=== PATIENT | female | born 1985 | race Hispanic/Latino ===

== ENCOUNTER → 2021-03-16 | Day surgery (SDC) | payer BC ==
--- NOTE | 2021-03-16 12:23 | RAD REPORT ---
EXAM DESCRIPTION: US - Breast Core BX w/US Guidance - 03/16/2021 10:55 am CLINICAL HISTORY: ICD R 92.8 COMPARISON: 03/07/2021 TECHNIQUE: The risks, benefits alternatives to the procedure were explained to the patient and infor med consent obtained. Skin and subcutaneous tissues anesthetized with lidocaine. Under sonographic guidance, 4 x 12 gauge core biopsies of the mass within the left breast obtained. 2 centimeter specimens taken. Tissue given to pathology. Subsequently a localizing clip was placed into the mass. Patient experienced no immediate complication IMPRESSION: Technically successful ultrasound-guided core biopsy of a left breast lesion.
== END ==
LOC: DS 10:16
PROVIDERS: ATTEND Specialist
DX: C50.012 Malignant neoplasm of nipple and areola, left female breast (principal); Z17.0 Estrogen receptor positive status [ER+]
CPT/HCPCS: 19083; 88305

== ENCOUNTER 2021-03-25 17:26 | Emergency (ER) | payer BC ==
--- OUTSIDE RECORDS SUMMARY | 2021-03-25 17:29 | XMS REPORT | Continuity of Care Document ---
:1985 Author Organization [facility] t Address [address] [place] [address] Care Team Providers Name Role Phone Talita VICK, Renny Primary Care Physician Cyrus VICK, Monica Cates Attending Clinician [phone] Provider MD Attending Clinician Provider, Urgent Care Attending Clinician Unavailable Doctor Unassigned, Name Attending Clinician Unavailable Payers Payer Name Policy Type Policy Effective Date Expiration Date Sour ce Number BCBSBCBS CHOICE [id number] 2020 [facility] PPO/FEDERAL 00:00:00 Hospital EMPL [id number] 2020-Presen tPPO Problems Condition Condition Condition Status Onset Resolution Last Treating Co mments Source Name Details Category Date Date Treatment Clinician Date Malignant Malignant Disease Active Met [facility] neoplasm neoplasm 03-24 of [facility] 00:00: [facility] portion of portion of 00 l left left breast in breast in female, female, estrogen estrogen receptor receptor positive positive Family Family Disease Active [facility] history of history of 03-24 breast breast 00:00: Hospita cancer cancer 00 l Allergies, Adverse Reactions, Alerts This patient has no known allergies or adverse reactions. Family History Family Member Diagnosis Comments Start Date Stop Date Source Maternal aunt Thyroid cancer [facility] Maternal grandmother Breast cancer [facility] Natural sister Colon polyps [facility] Social History Social Habit Start Date Stop Date Quantity Comments Source Exposure to Not sure [facility] [address] (event) Tobacco use and 2021-03-24 2021-03-24 Never used [facility] exposure [facility]00 [facility] Alcohol intake 2021-03-24 2021-03-24 Ex-drinker [facility] 00:[facility]:00 [facility]:00 (finding) Hospital Sex Assigned At [birth year] [facility] 00:00:00 00:00:00 [facility] Smoking Status Start Date Stop Date Source [facility] smoker [facility] Medications Ordered Filled Start Stop Current Ordering Indication Dosage Frequency Signature Comments Components Source Medication Medication Date Date Medication? Clinician (SIG) Name Name loratadine Yes 10mg QD Take 10 mg M [facility] (CLARITIN) 8-[address] 10 mg 21:28: daily. Hospita tablet 22 l melatonin Yes Take by Metho di 10 mg 8-[address] capsule 21:28: Hospita 22 l Mirena 20 Yes TO BE [facility] mcg/24 6-[address] hours (6 00:00: ONE TIME Hospi ta yrs) 52 mg 00 BY l IUD INTRAUTERI NE ROUTE BY PRESCRIBER Vital Signs Vital Name Observation Time Observation Value Comments Source Systolic blood 2021-03-24 21:26:00 131 mm[Hg] [facility] pressure Diastolic blood 2021-03-24 21:26:00 94 mm[Hg] [facility] pressure Heart rate 2021-03-24 21:26:00 97 /min [facility] Body height 2021-03-24 21:26:00 152.4 cm [facility] Body weight 2021-03-24 21:26:00 71.215 kg [facility] BMI 2021-03-24 21:26:00 30.66 kg/m2 [facility] Procedures Procedure Date / Time Performing Clinician Source Performed SURGICAL PATHOLOGY 2021-03-24 00:00:00 Provider, Historical [facility] REQUEST US BREAST BIOPSY LEFT 2021-03-16 00:00:00 Provider, Historical [facility] SURGICAL PATHOLOGY 2021-03-16 00:00:00 Provider, Historical [facility] REQUEST MAMMO BREAST DIAGNOSTIC 2021-03-07 00:00:00 Provider, Historical [facility] TOMOSYNTHESIS LEFT US AXILLA LEFT 2021-03-07 00:00:00 Provider, Historical [facility] MAMMO BREAST SCREEN 2021-02-03 00:00:00 Provider, Historical [facility] TOMOSYNTHESIS BILATERAL Plan of Care Planned Activity Planned Date Details Comments Source Future Scheduled Test COVID-19 VACCINE (1) [facility] [code = COVID-19 VACCINE (1)] Future Scheduled Test Hepatitis C screening [facility] (procedure) [code = 698574746] Future Scheduled Test Screening for [facility] malignant neoplasm of cervix (procedure) [code = 839427128] Future Scheduled Test INFLUENZA VACCINE [facility] [code = INFLUENZA VACCINE] Encounters Start End Encounter Admission Attending Care Care Encounter Source Date/Time Date/Time Type Type Clinicians Facility Department ID 2021-03-24 2021-03-24 Office Cyrus, 1.2.840.1 [id number] [facility] 15:52:37 16:52:37 Visit Monica Cates [id number] 3.430.2.7 Hospit a .[id number] l .8 2021-03-24 2021-03-24 [id number] [place] 00:00:00 00:00:00 MONICA 9 [facility] 2021-03-24 2021-03-24 Orders Provider, 1.2.840.1 [id number] [facility] 00:00:00 00:00:00 Only Historical 95467.1.1 986 s t 3.430.2.7 Hospit a .3.349391 l .8 2021-03-24 2021-03-24 Travel 1.2.840.1 [id number] [facility] 00:00:00 00:00:[id number] 3.430.2.7 0.2.7.3.698 Ho spita .3.672035 084.8 l .8 2021-03-23 2021-03-23 Orders Provider, 1.2.840.1 [id number] [facility] 00:00:00 00:00:00 Only Historical 57814.1.1 590 s t 3.430.2.7 Hospit a .3.446922 l .8 2020-07-17 2020-07-17 Urgent Provider, [facility] [id number] 16:02:04 16:57:55 Care [facility] 350.1.13.10 Care [place] 4.2.7.2.686 Yolande [id number] nal 044 Office [address] 2020-07-17 2020-07-17 Letter Doctor CINDI 1.2.840.114 [id number] 00:00:00 00:00:00 (Out) Unassigned, [place] 350.1.13.10 [place] [facility] 4.2.7.2.686 [id number] 044 Results This patient has no known results.
[2021-03-25 18:51] LABS: Absolute Lymphocytes (CBC) 2.9 K/uL (0.7-4.9); Basophils % 1.1 % (0-1.3); Hematocrit 40.1 % (36.0-45.0); Lymphocytes % 38.4 % (15.3-44.8); MPV 7.3 fL (7.6-11.3); RBC Red Blood Cell Count 4.69 M/uL (3.86-4.86)
[2021-03-25 18:56] LABS: Urine Blood 2+ (Negative); Urine Glucose Negative (Negative); Urine Protein 1+ (Negative); Urine Specific Gravity >=1.030 (1.005-1.030); Urine pH 5.5 (5.0-7.0)
[2021-03-25 19:15] LABS: ALT/SGPT 27 U/L (12-78); AST/SGOT 5 U/L (15-37); Albumin 4.1 g/dL (3.4-5.0); Alkaline Phosphatase 83 U/L (45-117); BUN Blood Urea Nitrogen 13 mg/dL (7-18); Bicarbonate 27 mmol/L (21-32); Bilirubin Direct 0.1 mg/dL (0-0.2); Bilirubin Total 0.6 mg/dL (0.2-1.0); Glucose Level 91 mg/dL (74-106); Lipase 85 U/L (73-393); Protein, Total 8.4 g/dL (6.4-8.2); Sodium Level 137 mmol/L (136-145); Troponin (Emerg Dept Use Only) < 0.02 ng/mL (0.0-0.045)
[2021-03-25] MEDS ORDERED: ONDANSETRON 4 MG/2 ML VIAL ONE (19:49)
[2021-03-25] MEDS ORDERED: MORPHINE 4 MG/ML SYR ONE (19:49)
[2021-03-25 21:07] LABS: Urine Bacteria >50 /HPF (<20); Urine Mucus 2+ /HPF (NONE SEEN)
--- NOTE | 2021-03-25 21:09 | RAD REPORT ---
EXAM DESCRIPTION: CT - Chest Abdomen Pelvis W Cont - 03/25/2021 8:49 pm CLINICAL HISTORY: Breast cancer/left flank pain COMPARISON: None TECHNIQUE: Computed axial tomography of the chest, abdomen and pelvis was obtained. 100 cc Isovue-30 0 was administered intravenously. Oral contrast was given All CT scans are performed using dose optimization technique as appropriate and may include automated exposure control or mA/KV adjustment according to patient size. FINDINGS: The lungs are clear. No mediastinal, axillary or hilar lymphadenopathy A pleural effusion is not seen. A pericardial effusion is not noted. 19 millimeter left breast mass Liver, spleen, pancreas, adrenals and kidneys appear unremarkable There is no evidence of diverticulitis. 4 centimeter complex cystic mass left ovary. IUD in good position Tiny umbilical hernia IMPRESSION: 19 millimeter left breast mass has been biopsied and represents a neoplasm. 4 centimeter complex cystic mass left ovary may represent a benign ovarian complex cyst or ovarian cy stadenoma. Follow-up ultrasound in a couple months recommended for re-evaluation
[2021-03-25 21:10] LABS: Urine Specific Gravity/Preg >1.030 (1.005-1.030)
[2021-03-25] MEDS ORDERED: LORazepam 2 MG/ML VIAL ONE (23:16)
--- NOTE | 2021-03-25 23:22 | EDPHYS ---
Physician Documentation [facility] Name: Yovana Gutierrez Age: 35 yrs Sex: Female : 1985 Arrival Date: 03/25/2021 Time: 17:31 Bed 13 Private MD: ED Physician Emilio Funk HPI: 03/25 18:17 This 35 yrs old Female presents to ER via Ambulatory with complaints of jmm Abdominal Pain, Shortness Of Breath. 18:17 The patient presents with abdominal pain. Onset: The symptoms/episode began/occurred jmm gradually, 1 day(s) ago. The symptoms radiate to left back. Associated signs and symptoms: Pertinent positives: shortness of breath. The symptoms are described as achy. Modifying factors: The symptoms are alleviated by nothing, the symptoms are aggravated by nothing. 35-year-old female with a history of recently diagnosed left breast cancer that presents to ER with complaints of left flank pain with some shortness of breath the pain does radiate into her left lower abdomen. Denies vomiting, diarrhea. . Historical: - Allergies: 17:52 No Known Allergies; zb - Home Meds: 17:52 Melatonin Oral [Active]; Claritin 10 mg Oral tab 1 tab once daily [Active]; zb acetaminophen 1,000 mg oral pwpk 1 gram daily [Active]; - PMHx: 17:52 breast cancer; zb - PSHx: 17:52 None; zb - Immunization history:: Adult Immunizations up to date, Client reports receiving the 2nd dose of the Covid vaccine, Date received: August 2020. - Social history:: Smoking status: unknown. ROS: 18:17 Constitutional: Negative for fever, chills, and weight loss, Cardiovascular: Negative jmm for chest pain, palpitations, and edema. 18:17 Respiratory: Positive for shortness of breath. 18:17 All other systems are negative. Exam: 18:17 Constitutional: This is a well developed, well nourished patient who is awake, alert, jmm and in no acute distress. Head/Face: atraumatic. Eyes: EOMI, no conjunctival erythema appreciated ENT: Moist Mucus Membranes Neck: Trachea midline, Supple Chest/axilla: Normal chest wall appearance and motion. Cardiovascular: Regular rate and rhythm. No edema appreciated Respiratory: Normal respirations, no respiratory distress appreciated Abdomen/GI: Non distended, soft Back: Normal ROM Skin: General appearance color normal MS/ Extremity: Moves all extremities, no obvious deformities appreciated, no edema noted to the lower extremities Neuro: Awake and alert, normal gait Psych: Behavior is normal, Mood is normal, Patient is cooperative and pleasant Vital Signs: 17:48 BP 130 / 90; Pulse 86; Resp 18; Temp 98.4; Pulse Ox 100% on R/A; Pain 2/10; zb 19:30 BP 119 / 75; Pulse 98; Resp 18; Temp 98.4; Pulse Ox 96% ; Pain 4/10; mg4 20:30 BP 108 / 63; Pulse 90; Resp 17; Temp 98.6; Pulse Ox 98% ; Pain 4/10; mg4 21:32 BP 127 / 70; Pulse 92; Resp 18; Temp 98.4; Pulse Ox 97% ; Pain 0/10; mg4 23:46 BP 110 / 70; Pulse 90; Resp 18; Pulse Ox 98% on R/A; sh9 MDM: 18:28 Patient medically screened. [facility] 23:20 Data reviewed: vital signs, nurses notes. Counseling: I had a detailed discussion with jessi the patient and/or guardian regarding: the historical points, exam findings, and any diagnostic results supporting the discharge/admit diagnosis, lab results, radiology results, the need for outpatient follow up, to return to the emergency department if symptoms worsen or persist or if there are any questions or concerns that arise at home. ED course: Patient is alert nontoxic in appearance in the ED. Patient will be treated with oral and biotics for UTI and also given strict return precautions. Patient understood agrees plan of care.. 03/25 18:17 Order name: Basic Metabolic Panel; Complete Time: 19:43 [facility] 03/25 18:17 Order name: CBC with Diff; Complete Time: 18:54 [facility] 03/25 18:17 Order name: Hepatic Function; Complete Time: 19:43 [facility] 03/25 18:17 Order name: Lipase; Complete Time: 19:43 [facility] 03/25 18:17 Order name: Troponin (emerg Dept Use Only); Complete Time: 19:43 [facility] 03/25 18:56 Order name: Urine Dipstick-Ancillary; Complete Time: 19:01 [facility] 03/25 19:02 Order name: D-Dimer; Complete Time: 20:13 [facility] 03/25 20:26 Order name: CT Chest, Abdomen, Pelvis - W/Contrast; Complete Time: 21:11 [facility] 03/25 20:37 Order name: Urine --Ancillary (enter results); Complete Time: 21:11 [facility] 03/25 20:38 Order name: Urine Culture [facility] 03/25 20:38 Order name: Urine Microscopic Only; Complete Time: 21:08 [facility] 03/25 18:17 Order name: IV Saline Lock; Complete Time: 19:23 [facility] 03/25 18:17 Order name: Labs collected and sent; Complete Time: 19:23 [facility] 03/25 18:17 Order name: Urine Dipstick-Ancillary (obtain specimen); Complete Time: 19:23 [facility] 03/25 18:17 Order name: Urine Test (obtain specimen); Complete Time: 19:23 [facility] Administered Medications: 19:35 Drug: morphine 4 mg {Note: RASS +0.} Route: IVP; Site: right antecubital; zb 21:37 Follow up: Response: No adverse reaction; Pain is decreased; RASS: Alert and Calm (0) zb 19:35 Drug: Zofran (Ondansetron) 4 mg Route: IVP; Site: right antecubital; zb 21:37 Follow up: Response: No adverse reaction zb 22:55 Drug: Ativan (LORazepam) 1 mg Route: IVP; Site: right antecubital; mg4 Disposition Summary: 03/25/21 23:21 Discharge Ordered Location: Home [facility] Condition: Stable [facility] Diagnosis - Cystic Mass jmm - Flank Pain jmm - UTI m - Dyspnea [facility] Followup: [facility] - With: Private Physician - When: 2 - 3 days - Reason: Recheck today's complaints, Continuance of care, Re-evaluation by your physician Discharge Instructions: - Discharge Summary Sheet [facility] - Urinary Tract Infection, Adult jmm - Pelvic Mass, Female jm - Breast Cancer, Female [facility] Forms: - Medication Reconciliation Form [facility] - Thank You Letter [facility] - Antibiotic Education [facility] - Prescription Opioid Use [facility] Prescriptions: - Ativan 1 mg Oral Tablet - take 1 tablet by ORAL route every 8 hours As needed; 20 tablet; Refills: 0, jessi Product Selection Permitted - Cephalexin 500 mg Oral Capsule - take 1 capsule by ORAL route every 8 hours for 10 days; 30 capsule; Refills: 0, jessi Product Selection Permitted Signatures: Dispatcher [employer] Garrick Warren PA PA jmm Brown, Zippor[place], RN RN Kurt Menard mg4
--- NOTE | 2021-03-25 23:22 | ER ---
Nurse's Notes [facility] Name: Yovana Gutierrez Age: 35 yrs Sex: Female : 1985 Arrival Date: 03/25/2021 Time: 17:31 Bed 13 Private MD: Diagnosis: Cystic Mass;Flank Pain;UTI;Dyspnea Presentation: 03/25 17:48 Chief complaint: Patient states: pt c/o intermittent abdominal pain that started last zb . pain will radiate to the left flank area sometimes. pain is described as sharp, achy, and dull. rates pain 2/10. + nausea. denies diarrhea, constipation, vomiting. LBM yesterday. Patient also complains of some SOB- recently dx with breast cancer. Coronavirus screen: Client presents with at least one sign or symptom that may indicate coronavirus-19. Ebola Screen: No symptoms or risks identified at this time. Initial Sepsis Screen: Does the patient meet any 2 criteria? No. Patient's initial sepsis screen is negative. Does the patient have a suspected source of infection? No. Patient's initial sepsis screen is negative. Risk Assessment: Do you want to hurt yourself or someone else? Patient reports no desire to harm self or others. Onset of symptoms was March 25, 2021. 17:48 Acuity: DAYA 3 zb 17:48 Method Of Arrival: Ambulatory zb Triage Assessment: 23:47 General: Behavior is calm, cooperative. sh9 Historical: - Allergies: 17:52 No Known Allergies; zb - Home Meds: 17:52 Melatonin Oral [Active]; Claritin 10 mg Oral tab 1 tab once daily [Active]; zb acetaminophen 1,000 mg oral pwpk 1 gram daily [Active]; - PMHx: 17:52 breast cancer; zb - PSHx: 17:52 None; zb - Immunization history:: Adult Immunizations up to date, Client reports receiving the 2nd dose of the Covid vaccine, Date received: August 2020. - Social history:: Smoking status: unknown. Screenin:36 Abuse screen: Denies threats or abuse. Denies injuries from another. Nutritional zb screening: No deficits noted. Tuberculosis screening: No symptoms or risk factors identified. Fall Risk None identified. Assessment: 19:45 General: Appears uncomfortable, well groomed. Pain: Complains of pain in back and mg4 abdomen. Neuro: No deficits noted. Cardiovascular: No deficits noted. Respiratory: No deficits noted. GI: Reports cramping, nausea. : No deficits noted. EENT: No deficits noted. Musculoskeletal: No deficits noted. 20:45 Reassessment: Patient appears in no apparent distress at this time. Patient and/or mg4 family updated on plan of care and expected duration. Pain level reassessed. Patient is alert, oriented x 3, equal unlabored respirations, skin warm/dry/pink. 21:39 Reassessment: Patient denies pain at this time. Patient states feeling better. Patient mg4 states symptoms have improved. 23:47 GI: Bowel sounds present X 4 quads. Abd is soft. sh9 Vital Signs: 17:48 BP 130 / 90; Pulse 86; Resp 18; Temp 98.4; Pulse Ox 100% on R/A; Pain 2/10; zb 19:30 BP 119 / 75; Pulse 98; Resp 18; Temp 98.4; Pulse Ox 96% ; Pain 4/10; mg4 20:30 BP 108 / 63; Pulse 90; Resp 17; Temp 98.6; Pulse Ox 98% ; Pain 4/10; mg4 21:32 BP 127 / 70; Pulse 92; Resp 18; Temp 98.4; Pulse Ox 97% ; Pain 0/10; mg4 23:46 BP 110 / 70; Pulse 90; Resp 18; Pulse Ox 98% on R/A; sh9 ED Course: 17:31 Patient arrived in ED. mr 17:52 Triage completed. zb 18:15 Garrick Browne PA is PHCP. jmm 18:15 Emilio Funk MD is Attending Physician. [facility] 18:55 Denise Harris is Primary Nurse. aj2 20:49 CT Chest, Abdomen, Pelvis - W/Contrast In Process Unspecified. EDMS 21:36 No apparent distress. Resting quietly. mg4 21:36 seat coverer on. Pulse ox on. NIBP on. Door closed. Noise minimized. Warm blanket mg4 given. 23:46 Arm band placed on right wrist. sh9 23:46 No provider procedures requiring assistance completed. IV discontinued, intact, sh9 bleeding controlled, No redness/swelling at site. 23:47 Patient has correct armband on for positive identification. sh9 Administered Medications: 19:35 Drug: morphine 4 mg {Note: RASS +0.} Route: IVP; Site: right antecubital; zb 21:37 Follow up: Response: No adverse reaction; Pain is decreased; RASS: Alert and Calm (0) zb 19:35 Drug: Zofran (Ondansetron) 4 mg Route: IVP; Site: right antecubital; zb 21:37 Follow up: Response: No adverse reaction zb 22:55 Drug: Ativan (LORazepam) 1 mg Route: IVP; Site: right antecubital; mg4 Outcome: 23:21 Discharge ordered by . jessi 23:47 Discharged to home ambulatory, with family. 9 23:47 Condition: good 23:47 Discharge instructions given to patient, Instructed on discharge instructions, follow up and referral plans. Demonstrated understanding of instructions, Prescriptions given X 2. 23:48 Patient left the ED. sh9 Signatures: Dispatcher [employer] EDMS Garrick Browne PA PA jmm Rivera, Mary mr Brown, Candida, RN RN Denise Orellana [place] mg4 June Aquino RN RN sh9
[2021-03-25 23:59] VITALS: TEMP 98.4
[2021-03-26] VITALS: BP 110/70; O2SAT 98
== END 2021-03-25 23:48 | disposition home or self-care (01) ==
LOC: ER 17:26
DX: N39.0 Urinary tract infection, site not specified (principal); R06.00 Dyspnea, unspecified; N94.9 Unspecified condition associated with female genital organs and menstrual cycle; Z85.3 Personal history of malignant neoplasm of breast
CPT/HCPCS: 87088; 85025; 87086; 80048; 36415; 81025; 85379; 80076; 84484; 83690; 71260; 74177; 96375; 96374; 99284; Q9967; J2405; 81003; 81015

== ENCOUNTER 2021-04-11 22:05 | Observation (INO) | payer BC ==
--- OUTSIDE RECORDS SUMMARY | 2021-04-11 22:09 | XMS REPORT | Clinical Summary ---
:1985 Author Organization [facility] [place] [facility] Address [address] [place] [address] Care Team Providers Name Role Phone Renny Sanon MD Unavailable [phone] Dennis Celeste MD Unavailable Allergies Not on File Medications Not on file Active Problems Not on file Encounters Date Type Specialty Care Team Description 03/31/2021 Documentation Surgical Oncology Blanka Warner, MSN after 04/11/2020 Social History Tobacco Use Types Packs/Day Years Used Date Never Assessed Sex Assigned at Date Recorded Not on file Job Start Date Occupation Industry Not on file Not on file Not on file Last Filed Vital Signs Not on file Plan of Treatment Health Maintenance Due Date Last Done Comments COVID-19 Vaccination (1) 1996 Results Not on fileafter 04/11/2020 Insurance Payer Benefit Plan / Subscriber ID Effective Dates Phone Addre ss Type Group BLUE [employer] POS [id number] 2020-Present PPO SHIELD
--- OUTSIDE RECORDS SUMMARY | 2021-04-11 22:10 | XMS REPORT | Continuity of Care Document ---
:1985 Author Organization Formerly [facility] t Address [address] [place] [address] Care Team Providers Name Role Phone Renny Sanon MD Primary Care Physician SYSTEM, PROVIDER NOT IN Attending Clinician Unavailable Loan Yang MD Attending Clinician Timmy RUBI Attending Clinician Unavailable Provider Attending Clinician Provider, Urgent Care Attending Clinician Unavailable Doctor Unassigned, Name Attending Clinician Unavailable Payers Payer Name Policy Type Policy Number Effective Date Expiration Date Kai sims BLUE CROSS BLUE [id number] 2020 MD Van danielson [facility] PPO 00:00:00 [id number] 07/2020-PresentPPO Problems Condition Condition Condition Status Onset Resolution Last Treating Co mments Source Name Details Category Date Date Treatment Clinician Date Malignant Malignant Disease Active Met hodi neoplasm neoplasm 03-24 of [place] 00:00: Ho spita portion of portion of [...] Stop Date Source Maternal aunt Thyroid cancer [facility] Maternal grandmother Breast cancer [facility] Natural sister Colon polyps [facility] Social History Social Habit Start Date Stop Date Quantity Comments Source Exposure to Not sure [facility] (event) Tobacco use and 2021-03-24 2021-03-24 Never used [facility] exposure 00:00:00 00:00:00 Hospital Alcohol intake 2021-03-24 2021-03-24 Ex-drinker [facility] 00:00:00 00:00:00 (finding) Hospital Sex Assigned At [birth year] [facility] 00:[facility]00 [facility] Smoking Status Start Date Stop Date Source Never smoker [facility] Medications Ordered Filled Start Stop Current Ordering Indication Dosage Frequency Signature Comments Components Source Medication Medication Date Date Medication? Clinician (SIG) Name Name loratadine Yes 10mg QD Take 10 mg M ethodi (CLARITIN) 8-[address] 10 mg 21:28: daily. Hospita tablet 22 l melatonin Yes Take by Metho di 10 mg 8-[address] capsule 21:28: Hospita 22 l loratadine Yes 10mg QD Take 10 mg [...] l IUD INTRAUTERI NE ROUTE BY PRESCRIBER Mirena 20 Yes TO BE Methodi mcg/24 6-[address] hours (6 00:00: ONE TIME Hospi ta yrs) 52 mg 00 BY l IUD INTRAUTERI NE ROUTE BY PRESCRIBER Vital Signs Vital Name Observation Time Observation Value Comments Source Systolic blood 2021-03-24 21:26:00 131 mm[Hg] [facility] pressure Diastolic blood 2021-03-24 21:26:00 94 mm[Hg] [facility] pressure Heart rate 2021-03-24 21:26:00 97 /min [facility] Body height 2021-03-24 21:26:00 152.4 cm [facility] Body weight 2021-03-24 21:26:00 71.215 kg [facility] BMI 2021-03-24 21:26:00 30.66 kg/m2 [facility] Procedures Procedure Date / Time Performing Clinician Source Performed SURGICAL PATHOLOGY 2021-03-24 00:00:00 Provider, Historical [facility] REQUEST US BREAST EXTERNAL STUDY 2021-03-16 15:15[facility]SY LEFT 2021-03-16 00:00:00 Provider, Historical [facility] SURGICAL PATHOLOGY 2021-03-16 00:00:00 Provider, Historical [facility] REQUEST MAMMO EXTERNAL STUDY 2021-03-07 14:24:[facility]NOSTIC 2021-03-07 00:00:00 Provider, Historical [facility] TOMOSYNTHESIS LEFT US AXILLA LEFT 2021-03-07 00:00:00 Provider, Historical [facility] MAMMO EXTERNAL STUDY 2021-02-03 20:21:[facility] 2021-02-03 00:00:00 Provider, Historical [facility] TOMOSYNTHESIS BILATERAL Plan of Care Planned Activity Planned Date Details Comments Source Future Scheduled 1996 COVID-19 Vaccination MD Alvarado Test 00:00:00 (1) [code = COVID-19 Vaccination (1)] Future Scheduled Hepatitis C screening [facility] Test (procedure) [code = 505875251] Future Scheduled Scre[facility] Test malignant neoplasm of cervix (procedure) [code = 097388654] Future Scheduled INFLUENZA VACCINE [facility] [code = INFLUENZA VACCINE] Future Scheduled COVID-19 VACCINE (1) Met [facility] Test [code = COVID-19 VACCINE (1)] Future Scheduled Hepatitis C screening [facility] Test (procedure) [code = 102571051] Future Scheduled [facility]ening [facility] Test malignant neoplasm of cervix (procedure) [code = 019754119] Future Scheduled INFLUENZA VACCINE [facility] Test [code = INFLUENZA VACCINE] Future Scheduled COVID-19 VACCINE (1) Met [facility] Test [code = COVID-19 VACCINE (1)] Encounters Start End Encounter Admission Attending Care Care Encounter Source Date/Time Date/Time Type Type Clinicians Facility Department ID 2021-03-31 Outpatient SYSTEM, [facility] [id number] 08:45:01 PROVIDER Dominick smart 2021-03-31 2021-03-31 [facility], 1.2.840.1 [id number] 21 [id number] Methodi 16:18:25 23:59:00 Encounter Monica Cates 38546.1.[address] 3.430.2.7 Hospit a .3.454906 l .8 2021-03-31 2021-03-31 [facility], 1.2.840.1 [id number] 21 [id number] Methodi 16:17:33 16:17:33 Encounter Monica Cates 57403.1.[address] 3.430.2.7 Hospit a .3.644990 l .8 2021-03-31 2021-03-31 [facility], 1.2.840.1 [id number] 21 [id number] Methodi 16:17:14 16:17:14 Encounter Monica Cates 86874.1.[address] 3.430.2.7 Hospit a .3.710821 l .8 2021-03-31 2021-03-31 [facility], 1.2.840.1 [id number] 21 [id number] Methodi 16:16:34 16:16:34 Encounter Monica Cates 86251.1.[address] 3.430.2.7 Hospit a .3.927825 l .8 2021-03-31 2021-03-31 [facility], 1.2.840.1 [id number] 21 [id number] Methodi 16:14:44 16:15:00 Encounter Monica Cates 88408.1.[address] 3.430.2.7 Hospit a .3.962690 l .8 2021-03-31 2021-03-31 Outpatient [facility] [id number] [place] 00:00:00 00:00:00 MONICA [address] 2021-03-31 2021-03-31 Outpatient [facility] [id number] [place] 00:00:00 00:00:00 MONICA [address] 2021-03-31 2021-03-31 Outpatient CYRUS, [facility] 2100 [id number] [place] 00:00:00 00:00:00 MONICA 840 Method i 2021-03-31 2021-03-31 Outpatient CYRUS, [facility] 2100 [id number] [place] 00:00:00 00:00:00 MONICA 885 Method i 2021-03-31 2021-03-31 Outpatient CYRUS, [facility] 2100 [id number] [place] 00:00:00 00:00:00 MONICA 988 Method i 2021-03-30 2021-03-30 Telephone Cyrus, 1.2.840.1 [id number] Methodi 00:00:00 00:00:00 Monica Cates 15156.1.[address] 3.430.2.7 Hospit a .3.527171 l .8 2021-03-28 2021-03-28 Orders Provider, 1.2.840.1 [id number] 2099 [id number] Methodi 00:00:00 00:00:00 Only Historical 97390.1.1 978 s t 3.430.2.7 Hospit a .3.098959 l .8 2021-03-24 2021-03-24 Office Cyrus, 1.2.840.1 [id number] Methodi 15:52:37 16:52:37 Visit Monica Cates 59571.1.[address] 3.430.2.7 Hospit a .3.573923 l .8 2021-03-24 2021-03-24 Office CYRUS, 1.2.840.1 [id number] 076 [id number] [place] 00:00:00 00:00:00 Visit MONICA 43697.1.[address] .3.889541 .8 2021-03-24 2021-03-24 Orders Provider, 1.2.840.1 [id number] [id number] Methodi 00:00:00 00:00:00 Only Historical 13854.1.1 986 s t 3.430.2.7 Hospit a .3.355606 l .8 2021-03-24 2021-03-24 Travel 1.2.840.1 1.2.999.822 [id number] Methodi 00:00:00 00:00:[address] 3.430.2.7 0.2.7.3.698 Ho spita .3.331853 084.8 l .8 2021-03-24 2021-03-24 Orders Provider, 1.2.840.1 [id number] Methodi 00:00:00 00:00:00 Only Historical 28612.1.1 986 s t 3.430.2.7 Hospit a .3.624644 l .8 2021-03-24 2021-03-24 Travel 1.2.840.1 1.2.973.135 6828 [id number] Methodi 00:00:00 00:00:[address] 3.430.2.7 0.2.7.3.698 Ho spita .3.285510 084.8 l .8 2021-03-23 2021-03-23 Orders Provider, 1.2.840.1 [id number] Methodi 00:00:00 00:00:00 Only Historical 88198.1.1 590 s t 3.430.2.7 Hospit a .3.087263 l .8 2021-03-23 2021-03-23 Orders Provider, 1.2.840.1 [id number] Methodi 00:00:00 00:00:00 Only Historical 68929.1.1 590 s t 3.430.2.7 Hospit a .3.020934 l .8 2021-03-07 2021-03-07 Orders [place], 1.2.840.1 [id number] Methodi 00:00:00 00:00:00 Only Monica Cates 39534.1.[address] 3.430.2.7 Hospit a .3.642952 l .8 2021-02-03 2021-02-03 Orders Cyrus, 1.2.840.1 [id number] Methodi 00:00:00 00:00:00 Only Monica Cates 55821.1.[address] 3.430.2.7 Hospit a .3.798364 l .8 2020-07-17 2020-07-17 Urgent Provider, [facility] 1.2.078.727 [id number] 16:02:04 16:57:55 Care [facility] 350.1.13.10 Care [place] 4.2.7.2.686 Professio [id number] nal 044 Office [address] [employer] 2020-07-17 2020-07-17 Letter Doctor CINDI 1.2.840.114 [id number] 00:00:00 00:00:00 (Out) Unassigned, TELLO 350.1.13.10 [place] [facility] 4.2.7.2.686 [id number] 044 Results Test Description Test Time Test Comments Results Result [facility] e Comments US Breast 2021-03-16 This exam was not Methodi st External Study 15:15:10 acquired at a [facility] facility and has not been interpreted by a [facility] Provider. The exam was imported into our imaging system.Hm Interface, Radiology Results Incoming - 04/01/2021 5:01 PM CDT This exam was not acquired at a [facility] facility and has not been interpreted by a [facility] Provider. The exam was imported into our imaging system. Mammo External 2021-03-07 This exam was not Met [facility] Study 14:24:26 acquired at a Hospital [facility] facility and has not been interpreted by a [facility] Provider. The exam was imported into our imaging system.Hm Interface, Radiology Results Incoming - 03/31/2021 4:20 PM CDT This exam was not acquired at a [facility] facility and has not been interpreted by a [facility] Provider. The exam was imported into our imaging system.
[2021-04-11] MEDS ORDERED: NA CHLORIDE 0.9% 1,000 ML ONE ×2 (23:14→23:15)
[2021-04-11] MEDS ORDERED: METOPROLOL TARTRATE 5 MG/5 ML INJ IV ONE (23:15)
[2021-04-11] MEDS ORDERED: ENOXAPARIN 60 MG/0.6 ML SQ ONE (23:16)
[2021-04-11] MEDS ORDERED: ENOXAPARIN 80 MG/0.8 ML SQ ONE (23:16)
--- NOTE | 2021-04-11 23:30 | ER ---
Nurse's Notes [facility] Name: Yovana Gutierrez Age: 35 yrs Sex: Female : 1985 Arrival Date: 04/11/2021 Time: 22:08 Bed 6 Private MD: Diagnosis: Unspecified atrial fibrillation-New onset Presentation: 04/11 22:15 Chief complaint: Patient states: Pt states she was at rest approximately 30 mins prior wg to arrival when she felt her chest fluttering. States her apple watch stated her HR was 170. She then clicked EKG on watch and it said a-fib. Pt states she felt slightly nauseated but did not vomit. States she had her first dose of chemo (Breast CA) last Sunday. Coronavirus screen: Vaccine status: Patient reports receiving the 2nd dose of the covid vaccine. Date March 26, 2021 At this time, the client does not indicate any symptoms associated with coronavirus-19. Ebola Screen: Patient negative for fever greater than or equal to 101.5 degrees Fahrenheit, and additional compatible Ebola Virus Disease symptoms Patient denies exposure to infectious person. Patient denies travel to an Ebola-affected area in the 21 days before illness onset. No symptoms or risks identified at this time. Initial Sepsis Screen: Does the patient meet any 2 criteria? No. Patient's initial sepsis screen is negative. Does the patient have a suspected source of infection? No. Patient's initial sepsis screen is negative. Risk Assessment: Do you want to hurt yourself or someone else? Patient reports no desire to harm self or others. Onset of symptoms was April 11, 2021 at 21:50. Care prior to arrival: None. 22:15 Method Of Arrival: Ambulatory 22:15 Acuity: DAYA 2 wg Triage Assessment: 22:21 General: Appears uncomfortable, well groomed, Behavior is calm, cooperative, wg appropriate for age. Pain: Denies pain. Complains of pain in chest Quality of pain is described as fluttering in chest- "no pain". EENT: No deficits noted. No signs and/or symptoms were reported regarding the EENT system. Neuro: No deficits noted. Cardiovascular: Reports nausea, palpitations, Denies diaphoresis, lightheadedness, shortness of breath, syncope, vomiting. Respiratory: No deficits noted. GI: Reports nausea. : No deficits noted. Derm: No deficits noted. Musculoskeletal: No deficits noted. 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 - Social history:: Smoking status: Patient denies any tobacco usage or history of. Screenin:05 Abuse screen: Denies threats or abuse. Nutritional screening: No deficits noted. em Tuberculosis screening: No symptoms or risk factors identified. Fall Risk None identified. Assessment: 23:00 General: Appears in no apparent distress. comfortable, Behavior is calm, cooperative, em appropriate for age. Pain: Complains of pain in chest Pain does not radiate. Pain began 2 hours ago. Neuro: Level of Consciousness is awake, alert, obeys commands, Oriented to person, place, time, situation, Appropriate for age. Cardiovascular: Capillary refill < 3 seconds Patient's skin is warm and dry. Rhythm is atrial fibrillation. Respiratory: Airway is patent Respiratory effort is even, unlabored, Respiratory pattern is regular, symmetrical. GI: Abdomen is flat, Reports nausea, Patient currently denies vomiting. Derm: Skin is intact, is healthy with good turgor, Skin is pink, warm \\T\\ dry. Musculoskeletal: Capillary refill < 3 seconds, Range of motion: intact in all extremities. 23:06 Cardiovascular: Rhythm is sinus rhythm. em 04/12 00:00 Reassessment: Patient appears in no apparent distress at this time. Patient and/or em family updated on plan of care and expected duration. Pain level reassessed. Patient is alert, oriented x 3, equal unlabored respirations, skin warm/dry/pink. 00:55 Reassessment: Patient appears in no apparent distress at this time. Patient and/or em family updated on plan of care and expected duration. Pain level reassessed. Patient is alert, oriented x 3, equal unlabored respirations, skin warm/dry/pink. Patient states feeling better. Vital Signs: 04/11 22:15 BP 142 / 105; Pulse 46; Resp 18; Temp 98.9; Pulse Ox 100% on R/A; Weight 72.57 kg; wg Height 5 ft. 0 in. (152.40 cm); Pain /; 23:05 BP 115 / 86; Pulse 98; Resp 18; Pulse Ox 99% on R/A; em 04/12 00:55 BP 117 / 75; Pulse 79; Resp 18; Pulse Ox 99% on R/A; em 01:45 BP 102 / 66; Pulse 81; Resp 20; Pulse Ox 99% on R/A; em 04/11 22:15 Body Mass Index 31.25 (72.57 kg, 152.40 cm) wg ED Course: 04/11 22:08 Patient arrived in ED. bp1 22:20 Triage completed. wg 22:21 Arm band placed on right wrist. wg 22:32 Hima Dawson NP is PHCP. pm1 22:32 Emilio Funk MD is Attending Physician. pm1 22:52 Sherif Griffith, RN is Primary Nurse. em 23:00 Initial lab(s) drawn, by dc, sent to lab. Inserted saline lock: 22 gauge in left bb antecubital area, using aseptic technique. Blood collected. Missed attempt(s): 20 gauge in right antecubital area. Bleeding controlled, band aid applied, catheter tip intact. 23:01 XRAY Chest (1 view) In Process Unspecified. EDMS 23:05 Patient has correct armband on for positive identification. Placed in gown. Bed in low em position. Call light in reach. Side rails up X2. Adult w/ patient. traffic monitor specialist on. Pulse ox on. NIBP on. 23:10 EKG done, by ED staff, reviewed by Sherif Griffith RN. Patient maintains SpO2 saturation em greater than 95% on room air. 23:26 Abdomen 1 View (KUB) XRAY In Process Unspecified. EDMS 23:29 Renny Sanon MD is Hospitalizing Provider. pm1 23:49 Notified Nurse Practitioner and/or Physician Overhead Crane Truck Loader of a critical lab result(s), bb WBCs of 39.2. Hima Dawson SENIOR MARKET INTELLIGENCE CONSULTANT notified. 04/12 01:57 No provider procedures requiring assistance completed. Patient admitted, IV remains in em place. Administered Medications: 04/11 23:05 Drug: NS 0.9% 1000 ml Route: IV; Rate: 1000 ml; Site: left antecubital; em 09/14 00:35 Follow up: IV Status: Completed infusion; IV Intake: 1000ml em 04/11 23:26 Not Given (Physician Discretion): Lopressor (metoprolol) 5 mg IVP once; Hold for SBP em <100 or HR <60. 23:26 Drug: Lovenox (enoxaparin) 1 mg/kg Route: Sub-Q; Site: right lower abdomen; em 23:30 Follow up: Response: No adverse reaction em 23:47 Drug: Lopressor (metoprolol TARTRATE)) 25 mg Route: PO; em 04/12 00:00 Follow up: Response: No adverse reaction em Intake: 00:35 IV: 1000ml; Total: 1000ml. em Outcome: 04/11 23:30 Decision to Hospitalize by Provider. pm1 04/12 01:57 Admitted to Med/surg accompanied by tech, family with patient, via wheelchair, room em 217, Report called to andrew amaro Condition: stable Instructed on the need for admit, Demonstrated understanding of instructions. 02:19 Patient left the ED. em Signatures: Dispatcher [employer] Sherif Bean, RN RN Jeanie Escalante RN RN bb Hima Dawson, DAVID SENIOR MARKET INTELLIGENCE CONSULTANT pm1 Tiffany Palacios Liam, RN wg Corrections: (The following items were deleted from the chart) 04/11 22:33 22:15 Acuity: DAYA 3 jerzy bertrand
--- NOTE | 2021-04-11 23:30 | EDPHYS ---
Physician Documentation [facility] Name: Yovana Gutierrez Age: 35 yrs Sex: Female : 1985 Arrival Date: 04/11/2021 Time: 22:08 Bed 6 Private MD: ED Physician Emilio Funk HPI: 04/11 22:36 This 35 yrs old Female presents to ER via Ambulatory with complaints of pm1 Irregular Pulse. 22:36 The patient presents with a history of irregular heart beat, heart racing. Context: The pm1 symptoms occur at rest. Onset: The symptoms/episode began/occurred Onset of palpitations on Sunday, worse 1 hour prior to arrival. Modifying factors: The symptoms are aggravated by nothing. The symptoms are alleviated by nothing. Associated signs and symptoms: Pertinent negatives: chest pain, cough, fever, nausea, SOB, syncope, vomiting. Severity of symptoms: in the emergency department the symptoms are unchanged Pain is currently a 0 / 10. The patient has not experienced similar symptoms in the past. Patient recently started chemotherapy for her breast cancer. Patient reports decreased p.o. intake. Patient reports constipation for the past 3 days. Typically with bowel movement daily. Negative nausea, vomiting, diarrhea, abdominal pain. 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 - Social history:: Smoking status: Patient denies any tobacco usage or history of. ROS: 22:36 Constitutional: Negative for fever, chills, and weight loss. pm1 22:36 ENT: Negative for injury, pain, and discharge, Respiratory: Negative for shortness of breath, cough, wheezing, and pleuritic chest pain, Abdomen/GI: Negative for abdominal pain, nausea, vomiting, diarrhea, and constipation, Back: Negative for injury and pain, MS/Extremity: Negative for injury and deformity, Skin: Negative for injury, rash, and discoloration, Neuro: Negative for headache, weakness, numbness, tingling, and seizure. 22:36 Cardiovascular: Positive for palpitations, Negative for chest pain. 22:36 All other systems are negative. Exam: 22:36 Constitutional: This is a well developed, well nourished patient who is awake, alert, pm1 and in no acute distress. Head/Face: Normocephalic, atraumatic. 22:36 Back: No spinal tenderness. No costovertebral tenderness. Full range of motion. Skin: Warm, dry with normal turgor. Normal color with no rashes, no lesions, and no evidence of cellulitis. MS/ Extremity: Pulses equal, no cyanosis. Neurovascular intact. Full, normal range of motion. 22:36 Eyes: Exam is negative for acute changes, Periorbital structures: appear normal, Pupils: no acute changes, Extraocular movements: intact throughout, Conjunctiva: no acute changes, no injection. 22:36 ENT: Mouth: no acute changes, Lips: normal, moist, Oral mucosa: normal, pink and intact, moist. 22:36 Cardiovascular: Rate: tachycardic, Rhythm: irregular, Pulses: no pulse deficits are appreciated, Heart sounds: normal, normal S1and S2, Edema: is not appreciated. 22:36 Respiratory: Exam negative for acute changes, respiratory distress, shortness of breath, Breath sounds: are clear throughout. 22:36 Abdomen/GI: Inspection: abdomen appears normal, Palpation: abdomen is soft and non-tender, in all quadrants. 22:36 Neuro: Exam negative for acute changes, Orientation: is normal, Mentation: is normal, Motor: is normal, moves all fours. Vital Signs: 22:15 BP 142 / 105; Pulse 46; Resp 18; Temp 98.9; Pulse Ox 100% on R/A; Weight 72.57 kg; wg Height 5 ft. 0 in. (152.40 cm); Pain 1/10; 23:05 BP 115 / 86; Pulse 98; Resp 18; Pulse Ox 99% on R/A; em 04/12 00:55 BP 117 / 75; Pulse 79; Resp 18; Pulse Ox 99% on R/A; em 01:45 BP 102 / 66; Pulse 81; Resp 20; Pulse Ox 99% on R/A; em 04/11 22:15 Body Mass Index 31.25 (72.57 kg, 152.40 cm) wg MDM: 04/11 22:40 Patient medically screened. pm1 23:28 Data reviewed: vital signs. Data interpreted: Pulse oximetry: on room air is 99 %. pm1 Interpretation: normal. 23:28 Counseling: I had a detailed discussion with the patient and/or guardian regarding: the pm1 historical points, exam findings, and any diagnostic results supporting the discharge/admit diagnosis, the need for further work-up and treatment in the hospital. 23:36 Physician consultation: Renny Sanon MD regarding admission, Left voicemail. pm1 04/12 00:50 ED course: Patient without fever, cough sore throat, earache, chest pain, or shortness pm1 of breath. Patient does not appear toxic. Elevated white count present, patient currently on day 3 of Decadron for chemotherapy. Discussed with attending physician and likely this is the cause for the elevated white count. 04/11 22:24 Order name: Basic Metabolic Panel; Complete Time: 00:04 04/11 22:24 Order name: CBC with Diff; Complete Time: 00:49 04/11 22:24 Order name: LFT's; Complete Time: 00:04 04/11 22:24 Order name: Magnesium; Complete Time: 00:04 04/11 22:24 Order name: NT PRO-BNP; Complete Time: 00:04 04/11 22:24 Order name: PT-INR; Complete Time: 00:04 04/11 22:24 Order name: Troponin (emerg Dept Use Only); Complete Time: 00:04 04/11 22:24 Order name: XRAY Chest (1 view) 04/11 22:40 Order name: TSH [facility] 04/11 23:29 Order name: Thyroid Stimulating Hormone; Complete Time: 00:04 [facility] 04/11 23:30 Order name: COVID-19 : Document "Date of Symptom Onset" if Symptomatic. pm1 04/11 23:49 Order name: Manual Differential; Complete Time: 00:49 [facility] 04/12 01:28 Order name: SARS-COV-2 RT PCR; Complete Time: 01:28 [facility] 04/11 22:24 Order name: EKG; Complete Time: 22:24 04/11 22:24 Order name: Cardiac monitoring; Complete Time: 22:53 04/11 22:24 Order name: EKG - Nurse/Tech; Complete Time: 22:53 04/11 22:24 Order name: IV Saline Lock; Complete Time: 23:21 wg 04/11 22:24 Order name: Labs collected and sent; Complete Time: 22:52 wg 04/11 22:24 Order name: O2 Per Protocol; Complete Time: 22:52 wg 04/11 22:24 Order name: O2 Sat Monitoring; Complete Time: 22:52 04/11 22:41 Order name: Abdomen 1 View (KUB) XRAY pm1 Administered Medications: 04/11 23:05 Drug: NS 0.9% 1000 ml Route: IV; Rate: 1000 ml; Site: left antecubital; em 04/12 00:35 Follow up: IV Status: Completed infusion; IV Intake: 1000ml em 04/11 23:26 Not Given (Physician Discretion): Lopressor (metoprolol) 5 mg IVP once; Hold for SBP em <100 or HR <60. 23:26 Drug: Lovenox (enoxaparin) 1 mg/kg Route: Sub-Q; Site: right lower abdomen; em 23:30 Follow up: Response: No adverse reaction em 23:47 Drug: Lopressor (metoprolol TARTRATE)) 25 mg Route: PO; em 04/12 00:00 Follow up: Response: No adverse reaction em Disposition: 02:19 Co-signature as Attending Physician, Emilio Funk MD. pk Disposition Summary: 04/11/21 23:30 Hospitalization Ordered Hospitalization Status: Observation pm1 Provider: Renny Sanon pm1 [facility] pm1 Condition: Stable pm1 Problem: new pm1 Symptoms: have improved pm1 Bed/Room Type: Standard pm1 Room Assignment: [facility](04/12/21 01:46) Diagnosis - Unspecified atrial fibrillation - New onset pm1 Forms: - Medication Reconciliation Form pm1 - SBAR form pm1 Signatures: Dispatcher [employer] EDMS Sheree Montano RN RN mw Lam, Pin, MD MD pkl Munoz, Edgar, RN RN em Norm Mai, WEB PUBLISHER-C WEB PUBLISHER-Cla1 Hima [place] NP PHARMACY BENEFITS COORDINATOR pm1 Jorge Macias RN wg Corrections: (The following items were deleted from the chart) 04/11 23:29 22:41 Thyroid Stimulating Hormone ordered. EDMS EDMS 09/14 01:46 09/13 23:30 pm1 mw
[2021-04-11 23:32] LABS: Protime INR 0.99
[2021-04-11 23:34] LABS: Absolute Lymphocytes (CBC) 0.9 K/uL (0.7-4.9); Basophils % 0.1 % (0-1.3); Hematocrit 41.1 % (36.0-45.0); Lymphocytes % 2.3 % (15.3-44.8); MPV 7.8 fL (7.6-11.3); RBC Red Blood Cell Count 4.74 M/uL (3.86-4.86)
[2021-04-11 23:52] LABS: ALT/SGPT 27 U/L (12-78); AST/SGOT 6 U/L (15-37); Albumin 3.4 g/dL (3.4-5.0); Alkaline Phosphatase 99 U/L (45-117); BUN Blood Urea Nitrogen 17 mg/dL (7-18); Bicarbonate 26 mmol/L (21-32); Bilirubin Direct < 0.1 mg/dL (0-0.2); Bilirubin Total 0.2 mg/dL (0.2-1.0); Glucose Level 152 mg/dL (74-106); Magnesium 2.7 mg/dL (1.8-2.4); NT PRO-BNP 107 pg/mL (<125); Potassium 3.6 mmol/L (3.5-5.1); Protein, Total 7.1 g/dL (6.4-8.2); Sodium Level 142 mmol/L (136-145); Thyroid Stimulating Hormone 0.172 uIU/mL (0.360-3.740); Troponin (Emerg Dept Use Only) < 0.02 ng/mL (0.0-0.045)
[2021-04-12] MEDS ORDERED: METOPROLOL TAR 25 MG TAB ONE (00:06)
[2021-04-12 00:27] LABS: Blood Morphology Comment NOT SEEN (NOT SEEN)
[2021-04-12 00:28] LABS: Platelet Estimate ADEQ
[2021-04-12] MEDS ORDERED: NA CHLORIDE 0.9% 1,000 ML ONE (00:37)
[2021-04-12 02:42] VITALS: BMI 31.2
[2021-04-12] MEDS: NA CHLORIDE 0.9% 1,000 ML IV SCH ×2 (02:57→08:38)
[2021-04-12 06:15] LABS: Absolute Lymphocytes (CBC) 1.2 K/uL (0.7-4.9); Basophils % 0.1 % (0-1.3); Hematocrit 35.8 % (36.0-45.0); Lymphocytes % 3.6 % (15.3-44.8); MPV 7.8 fL (7.6-11.3); RBC Red Blood Cell Count 4.13 M/uL (3.86-4.86)
[2021-04-12 06:37] LABS: BUN Blood Urea Nitrogen 16 mg/dL (7-18); Bicarbonate 29 mmol/L (21-32); Glucose Level 109 mg/dL (74-106); Potassium 4.1 mmol/L (3.5-5.1); Sodium Level 138 mmol/L (136-145)
--- NOTE | 2021-04-12 08:54 | RAD REPORT ---
EXAM DESCRIPTION: RAD - Abdomen 1 View (KUB) - 04/11/2021 11:26 pm CLINICAL HISTORY: CONSTIPATION Pain COMPARISON: Breast Bilat W Wo Cont dated 03/28/2021 FINDINGS: The bowel gas pattern is non-obstructive. No evidence of free air or pneumatosis. Signific ant fecal retention is seen throughout the colon. No significant bony findings. IMPRESSION: Significant constipation.
--- NOTE | 2021-04-12 08:55 | RAD REPORT ---
EXAM DESCRIPTION: RAD - Chest Single View - 04/11/2021 11:01 pm CLINICAL HISTORY: CHEST PAIN Chest pain. COMPARISON: Chest Pa And Lat (2 Views) dated 11/02/2017; CHEST PA AND LAT 2 VIEW dated 05/11/2015; JALYN ST PA AND LAT 2 VIEW dated 05/10/2011; 3D DIAG UNI F/U dated 03/07/2021; 3D SCR LUCERO BILAT W/CAD dated FINDINGS: Portable technique limits examination quality. The lungs are grossly clear. The heart is normal in size. No displaced fractures.Right port catheter has its tip in the SVC. IMPRESSION: No acute intrathoracic process suspected.
[2021-04-12] MEDS ORDERED: ASPIRIN EC 81 MG TAB PO SCH (09:00)
[2021-04-12] MEDS ORDERED: ENOXAPARIN 80 MG/0.8 ML SQ SCH ×2 (09:00→21:00)
--- NOTE | 2021-04-12 10:05 | EKG ---
Test Date: 2021-04-11 Test Time: 23:07:42 Gis Manager: RORY MEASUREMENT RESULTS: Intervals: Rate: 97 NH: 148 QRSD: 76 QT: 350 QTc: 444 [place]: P: 67 NH: 148 QRS: 46 T: 52 INTERPRETIVE STATEMENTS: Normal sinus rhythm Normal ECG Compared to ECG 10/30/2013 08:44:30 No significant changes Electronically Signed On 04-12-21 10:04:33 CDT by Pardeep Dinh
--- NOTE | 2021-04-12 10:05 | EKG ---
Test Date: 2021-04-11 Test Time: 22:40:05 Fire Protection Fabricator: MONICA MEASUREMENT RESULTS: Intervals: Rate: 150 [place]: QRSD: 70 QT: 280 QTc: 442 [place]: P: IL: QRS: 14 T: 14 INTERPRETIVE STATEMENTS: Atrial fibrillation with rapid ventricular response Cannot rule out Anterior infarct, age undetermined Abnormal ECG Compared to ECG 10/30/2013 08:44:30 Myocardial infarct finding now present Sinus rhythm no longer present Electronically Signed On 04-12-21 10:04:35 CDT by Pardeep Dinh
--- NOTE | 2021-04-12 10:05 | EKG ---
Test Date: 2021-04-11 Test Time: 22:41:04 Manufacturing Engineer Paint: MONICA MEASUREMENT RESULTS: Intervals: Rate: 152 CO: QRSD: 70 QT: 288 QTc: 457 [place]: P: CO: QRS: 16 T: 7 INTERPRETIVE STATEMENTS: Atrial fibrillation with rapid ventricular response Cannot rule out Anterior infarct, age undetermined Abnormal ECG Compared to ECG 04/11/2021 22:40:05 No significant changes Electronically Signed On 04-12-21 10:04:33 CDT by Pardeep Dinh
[2021-04-12 13:32] VITALS: O2SAT 98
--- NOTE | 2021-04-12 16:14 | RAD REPORT ---
EXAM DESCRIPTION: US - Abdomen Exam Complete - 04/12/2021 3:32 pm CLINICAL HISTORY: Abdominal pain COMPARISON: none FINDINGS: No aortic aneurysm. The liver has a homogeneous echotexture. The portal vein is patent. The IVC at the level of the liver is unremarkable. No ascites. The gallbladder is unremarkable. No pericholecystic fluid, wall thickening, or gallstones identified. No biliary ductal dilatation. The pancreas was grossly unremarkable. The right kidney measures 11.2 cm normal echotexture. No hydronephrosis. No suspicious masses. The left kidney measures 11.1 cm with a normal echotexture. No hydronephrosis. No suspicious masses. The spleen is unremarkable. IMPRESSION: Abdominal ultrasound is within normal limits.
[2021-04-12 17:00] VITALS: BP 113/70; TEMP 97.6
--- NOTE | 2021-04-12 18:00 | P.SSS ---
Patient History Date of Service: 04/12/21 Reason for admission: PALPITATIONS AND BLOATED ABDOMEN History of Present Illness: KAROLYN IS A BREAST CANCER PATIENT WHO IS NEWLY DIAGNOSED AND ON CHEMO WITH STEROIDS. SHE COMES WITH PALPITATIONS AND WAS FOUND TO HAVE A FIB THAT IS AFTER CHEMO. SHE IS BACK IN SINUS RHYTHM NOW. SHE ALSO HAS CONSTIPATION THAT HAS RESOLVED AND SHE WILL TAKE MIRLALAX DAILY FOR IT. Allergies No Known Allergies Allergy (Verified 04/12/21 02:57) Home medications list reviewed: Yes Home Medications: Biotin 5,000 mcg PO DAILY 04/12/21 Cholecalciferol (Vitamin D3) [Vitamin D3] 1,000 unit PO DAILY 04/12/21 Cyanocobalamin (Vitamin B-12) [Vitamin B-12] 3,000 mcg PO DAILY 04/12/21 Folic Acid 1 mg PO DAILY 04/12/21 Granisetron HCl [Kytril] 1 mg PO Q12H PRN 04/12/21 Loratadine [Claritin*] 10 mg PO DAILY 04/12/21 Promethazine HCl 25 mg PO Q6H PRN 04/12/21 carvediloL [Carvedilol] 6.25 mg PO BID #60 tablet 04/12/21 - Past Medical/Surgical History Has patient received pneumonia vaccine in the past: No Diabetic: No -: L Breast Cancer - Family History Father -: Hypertension, Other (see notes) Notes: HLD Mother -: Hypertension, Other (see notes) Notes: HLD - Social History Smoking Status: Never smoker Alcohol use: No CD- Drugs: No Place of Residence: Home Review of Systems 10-point ROS is otherwise unremarkable Physical Examination - Vital Signs Temperature: 97.6 F Blood Pressure: 113/70 Pulse: 66 Respirations: 18 Pulse Ox (%): 99 - Physical Exam General: Alert, In no apparent distress HEENT: Atraumatic, PERRLA, Mucous membr. moist/pink, EOMI, Sclerae nonicteric Neck: Supple, 2+ carotid pulse no bruit, No LAD, Without JVD or thyroid abnormality Respiratory: Clear to auscultation bilaterally, Normal air movement Cardiovascular: Regular rate/rhythm, Normal S1 S2 Gastrointestinal: Normal bowel sounds, No tenderness Musculoskeletal: No tenderness Integumentary: No rashes Neurological: Normal gait, Normal speech, Normal strength at 5/5 x4 extr, Normal tone, Normal affect Lymphatics: No axilla or inguinal lymphadenopathy - Studies Laboratory Data (last 24 hrs) 04/11/21 23:00: PT 11.4, INR 0.99 04/11/21 23:00: WBC 39.20 H*, Hgb 13.6, Hct 41.1, Plt Count 282 04/11/21 23:00: Sodium 142, Potassium 3.6, BUN 17, Creatinine 0.65, Glucose 152 H, Magnesium 2.7 H, Total Bilirubin 0.2, AST 6 L, ALT 27, Alkaline Phosphatase 99 - Diagnosis (Problem(s)) (1) Transient atrial fibrillation Current Visit: Yes Status: Acute Plan: COREG RAISED IN DOSE. DR. KEANE DOES NOT WANT TO ANTICOAGULATE YET SHE IS YOUNG AND SUSPECT THIS CAN BE A LONE A FIB. (2) Constipated Current Visit: Yes Status: Chronic Plan: ABOVE. (3) Leukocytosis Current Visit: Yes Status: Acute Plan: POSSIBLE FROM DEXAMETHASONE SHE GOT JUST DAYS AGO. NO SIGNS OF ACUTE INFECTION EVIDENT. - Disposition Disposition: ROUTINE DISCHARGE Condition: FAIR
--- NOTE | 2021-04-13 08:35 | ECHO ---
HEIGHT: 5 ft 0 in WEIGHT: 160 lb 0 oz DATE OF STUDY: 04/12/[address]: Hima [place] NP 2-DIMENSIONAL: YES M.MODE: YES DOPPLER: NO COLOR FLOW: NO TDS: NO PORTABLE: NO DEFINITY: NO BUBBLE STUDY: NO DIAGNOSIS: NEW ONSET ATRIAL FIBRILLATION CARDIAC HISTORY: CATHERIZATION: NO SURGERY: NO PROSTHETIC VALVE: NO PACEMAKER: NO MEASUREMENTS (cm) DIASTOLIC (NORMALS) SYSTOLIC (NORMALS) IVSd 0.9 (0.6-1.2) LA Diam 2.8 (1.9-4.0) LVEF 60% LVIDd 3.9 (3.5-5.7) LVIDs 2.6 (2.0-3.5) %FS 32% LVPWd 1.0 (0.6-1.2) Ao Diam 2.2 (2.0-3.7) 2 DIMENSIONAL ASSESSMENT: RIGHT ATRIUM: NORMAL LEFT ATRIUM: NORMAL RIGHT VENTRICLE: NORMAL LEFT VENTRICLE: NORMAL TRICUSPID VALVE: NORMAL MITRAL VALVE: NORMAL PULMONIC VALVE: NORMAL AORTIC VALVE: NORMAL PERICARDIAL EFFUSION: NONE AORTIC ROOT: NORMAL LEFT VENTRICULAR WALL MOTION: NORMAL DOPPLER/COLOR FLOW: NOT REQUESTED. COMMENTS: NORMAL 2D ECHOCARDIOGRAM. LEFT VENTRICULAR EJECTION FRACTION 60%. NORMAL LEFT ATRIAL SIZE. NO EFFUSION. TECHNOLOGIST: Radha MARRUFO
== END 2021-04-12 18:30 | disposition home or self-care (01) ==
LOC: ER 22:05 → ERHOLD 23:52 → 2ND 04-12 01:56
PROVIDERS: ADMIT Internal Medicine; ATTEND Internal Medicine
DX: I48.91 Unspecified atrial fibrillation (principal); K59.00 Constipation, unspecified; D72.829 Elevated white blood cell count, unspecified; C50.912 Malignant neoplasm of unspecified site of left female breast; Z20.822 Contact with and (suspected) exposure to COVID-19; Z82.49 Family history of ischemic heart disease and other diseases of the circulatory system
CPT/HCPCS: 93307; 93005 ×3; 87040 ×2; 85025 ×2; 80048 ×2; 36415; 83735; 85610; 80076; 84443; 84484 ×3; 83880; 74018; 71045; 76700; U0003; J1650; J7030 ×4; 87205; 96360; 96372; 99285; G0378

== ENCOUNTER 2024-10-13 13:02 | Inpatient (IN) | payer BC ==
--- OUTSIDE RECORDS SUMMARY | 2024-10-13 13:04 | XMS REPORT | Clinical Summary ---
Author Name Unknown Organization [facility] Address [address] [place] [address] Care Team Providers Care Pharmacy Technician Name Role Phone Renny Sanon MD Unavailable + [phone] Fahad Celeste MD Unavailable [phone] Social History Tobacco Use Types Packs/Day Years Used Date Smoking Tobacco: Never Assessed Comments Unknown Sex and Gender Information Value Date Recorded Sex Assigned at Not on file Legal Sex Female 3:05 PM CDT Gender Identity Not on file Sexual Orientation Not on file Plan of Treatment Health Maintenance Due Date Last Done Comments COVID-19 Vaccine (2023-2 5 season) 2024 Influenza Vaccine (#1) 2024 Pneumococcal Vaccine Aged Out No long er eligible based on patient's age to complete this topic [place] [address] [place] [address] [place] [address] [place] [address] PPO POS Care Teams Pharmacy Technician Relationship Specialty Start Date End Date Renny Sanon MD [address] [place] [id number] [email or web address] PCP - External Primary Care Provider Internal Medicine 03/30/21 Fahad Celeste MD [address] [place] [id number] [email or web address] PCP - External Follow Up A Obstetrics/Gynecology 03/30/21
[2024-10-13 14:54] LABS: Specific Gravity 1.023 (1.005-1.030)
[2024-10-13 14:55] LABS: Specific Gravity 1.023 (1.005-1.030); Sqamous Epithelial <5 /HPF (None Seen); Urine Bacteria <20 /HPF (<20); Urine Bilirubin NEGATIVE (Negative); Urine Blood 2+ (Negative); Urine Clarity Turbid (Clear); Urine Color Light-Yellow (Yellow); Urine Culture Reflex Order NOT NEEDED; Urine Glucose NEGATIVE (Negative); Urine Ketones NEGATIVE (Negative); Urine Microscopic Reflex YN ORDER UMIC; Urine Mucus Slight /HPF (None Seen); Urine Nitrite NEGATIVE (Negative); Urine Protein NEGATIVE (Negative); Urine Urobilinogen Normal (Normal); Urine WBC Clump Rare /HPF (None Seen); Urine Yeast (Budding) Trace /HPF (None Seen); Urine pH 5.5 (5.0-7.0)
[2024-10-13 15:29] LABS: Absolute Basophils 0.1 K/uL (0-0.5); Absolute Eosinophils 0.3 K/uL (0-0.5); Absolute Lymphocytes (CBC) 2.4 K/uL (0.7-4.9); Absolute Monocytes 0.3 K/uL (0.1-1.3); Absolute Neutrophil 9.3 K/uL (1.8-8.0); Basophils % 0.9 % (0-1.3); Hematocrit 39.5 % (36.0-45.0); Hemoglobin 13.2 g/dL (12.0-15.0); Lymphocytes % 19.1 % (15.3-44.8); MCH 28.9 pg (27.0-35.0); MCHC 33.4 g/dL (32.0-36.0); MCV 86.5 fL (80-100); MPV 9.2 fL (7.6-11.3); Monocytes % 2.4 % (3.3-12.3); Neutrophils % 75.6 % (41.7-73.7); Nucleated RBC Absolute Count 0.1 (0-0); Nucleated Red Blood Cells % 0.5 % (0-0); Platelets 371 thou/uL (152-406); RBC Red Blood Cell Count 4.57 M/uL (3.86-4.86); Red Cell Distribution Width 13.8 % (12.1-15.2)
[2024-10-13] MEDS ORDERED: ONDANSETRON 4 MG/2 ML VIAL ONE ×2 (15:31→16:33)
[2024-10-13] MEDS ORDERED: MORPHINE 4 MG/ML SYR ONE ×2 (15:31→16:33)
[2024-10-13] MEDS ORDERED: NA CHLORIDE 0.9% 1,000 ML ONE ×2 (15:32→19:57)
--- NOTE | 2024-10-13 15:38 | RAD REPORT ---
EXAMINATION: CT ABDOMEN AND PELVIS WITH CONTRAST CLINICAL INDICATION: Female, 39 years old.ABD PAIN TECHNIQUE: CT abdomen and pelvis was performed, after the administration of IV contrast, as per [facility] protocol. Axial, sagittal and coronal reconstructions were obtained. One or more of the following dose reduction techniques were used: Automated exposure control, adjustment of the mA and/o r kV according to patient size, and/or iterative reconstruction. Unless otherwise specified, incidental findings do not require dedicated imaging follow-up. [id number]. COMPARISON: No prior exam. FINDINGS: LOWER CHEST: No acute process identified.No significant pericardial effusion. UPPER GI: No significant abnormality. LIVER: Hepatic steatosis, but otherwise unremarkable. GALLBLADDER/BILE DUCTS: No biliary ductal dilatation.? PANCREAS: Diffuse peripancreatic edema. No discrete fluid collections. Homogeneous attenuation of the pancreas. SPLEEN: Unremarkable. ADRENALS: No adrenal masses. KIDNEYS AND URETERS: No hydronephrosis.No suspicious renal mass. ABDOMINAL AORTA AND OTHER VESSELS: Normal caliber aorta and IVC. PERITONEUM: No abnormal free fluid. No free air. LYMPH NODES: No pathologic lymphadenopathy. ABDOMINAL WALL: Unremarkable SMALL BOWEL/COLON: Small bowel has normal course and caliber. No colonic wall thickening or pericolon ic inflammatory changes.Normal appendix. URINARY BLADDER: Underdistended but grossly unremarkable. REPRODUCTIVE ORGANS: 5.1 cm left adnexal cyst. >5 cm - <=7 cm: US f/u 6-12 weeks . IUD. MUSCULOSKELETAL: No acute or suspicious osseous abnormality. ADDITIONAL FINDINGS: None. IMPRESSION: Acute pancreatitis without complicating features. 5.1 cm left adnexal cyst. Recommend 6 week follow-up ultrasound.
[2024-10-13 16:05] LABS: ALT/SGPT 27 U/L (13-56); AST/SGOT 66 U/L (15-37); Albumin 3.1 g/dL (3.4-5.0); Albumin/Globulin Ratio 0.7 (1.1-1.8); Alkaline Phosphatase 78 U/L (45-117); Anion Gap 10.6 mEq/L (5.0-15.0); BUN Blood Urea Nitrogen 13 mg/dL (7-18); Bicarbonate 25 mEq/L (21-32); Bilirubin Total 0.2 mg/dL (0.2-1.0); Globulin 4.7 g/dL (2.3-3.5); Glomerular Filtration Rate 114 ml/min (=/>90); Glucose Level 93 mg/dL (74-106); Lipase 611 U/L (13-75); Potassium 5.6 mEq/L (3.5-5.1); Protein, Total 7.8 g/dL (6.4-8.2); Sodium Level 135 mEq/L (136-145); Troponin High Sensitivity < 3.0 pg/mL (<58.9)
--- NOTE | 2024-10-13 16:31 | RAD REPORT ---
Abdomen Exam Limited: 10/13/2024 4:11 PM CLINICAL HISTORY: ABD PAIN STUDY: Limited right upper quadrant ultrasound of abdomen. COMPARISON: Same day CT FINDINGS: Liver: Within normal limits. Bile ducts: No intrahepatic or extrahepatic biliary ductal dilatation. Common bile duct measures 2 mm. Gallbladder: Normal. IMPRESSION: Unremarkable exam.
--- NOTE | 2024-10-13 16:42 | ER ---
Nurse's Notes [facility] Name: Yovana Gutierrez Age: 39 yrs Sex: Female : 1985 Arrival Date: 10/13/2024 Time: 13:02 Bed 20 Private MD: Diagnosis: Other chronic pancreatitis Presentation: 10/13 13:17 Chief complaint: Patient states: Epigastric pain that radiates into L side of abdomen ll1 and chest started today. Coronavirus screen: Client denies travel out of the [place] in the last 14 days. At this time, the client does not indicate any symptoms associated with coronavirus-19. Ebola Screen: Patient denies travel to an Ebola-affected area in the 21 days before illness onset. Initial Sepsis Screen: Does the patient meet any 2 criteria? No. Patient's initial sepsis screen is negative. Does the patient have a suspected source of infection? No. Patient's initial sepsis screen is negative. Risk Assessment: Do you want to hurt yourself or someone else? Patient reports no desire to harm self or others. Onset of symptoms was October 13, 2024. 13:17 Method Of Arrival: Ambulatory ll1 13:17 Acuity: DAYA 3 ll1 Triage Assessment: 13:19 General: Appears uncomfortable, Behavior is calm, cooperative, appropriate for age. ll1 Pain: Complains of pain in epigastric. Respiratory: Reports cough that is. GI: Reports lower abdominal pain, upper abdominal pain, cramping, epigastric pain, nausea. 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 - Infectious Disease History:: Denies. - Social history:: Smoking status: Patient denies any tobacco usage or history of. Screenin:45 [facility] ED Fall Risk Assessment (Adult) History of falling in the last 3 months, aa5 including since admission No falls in past 3 months (0 pts) Confusion or Disorientation No (0 pts) Intoxicated or Sedated No (0 pts) Impaired Gait No (0 pts) Mobility Assist Device Used No (0 pt) Altered Elimination No (0 pt) Score/Fall Risk Level 0 - 2 = Low Risk Oriented to surroundings, Maintained a safe environment, Educated pt \\T\\ family on fall prevention, incl call for assistance when getting out of bed, Assessed \\T\\ reinforced patient's understanding of fall precautions. Abuse screen: Denies threats or abuse. Nutritional screening: No deficits noted. Tuberculosis screening: No symptoms or risk factors identified. Assessment: 15:45 General: Appears uncomfortable, Behavior is calm, cooperative. Pain: Complains of pain aa5 in epigastric area Pain radiates to left upper quadrant Quality of pain is described as dull, sharp, Pain began "this morning" Is continuous. Neuro: Level of Consciousness is awake, alert, obeys commands, Oriented to person, place, time, situation. Cardiovascular: Patient's skin is warm and dry. Respiratory: Airway is patent Respiratory effort is even, unlabored, Respiratory pattern is regular, symmetrical. GI: Abdomen is round non-distended, Bowel sounds present X 4 quads. Abdomen is tender to palpation in epigastric area and left upper quadrant Reports nausea. : No signs and/or symptoms were reported regarding the genitourinary system. EENT: No signs and/or symptoms were reported regarding the EENT system. Derm: Skin is pink, warm \\T\\ dry. Musculoskeletal: Range of motion: intact in all extremities. 16:07 Reassessment: US at bedside. aa5 16:47 Reassessment: Patient is alert, oriented x 3, equal unlabored respirations, skin aa5 warm/dry/pink. General: Appears uncomfortable. 17:08 Reassessment: Patient is alert, oriented x 3, equal unlabored respirations, skin aa5 warm/dry/pink. Reassessment: Pt requesting pain medication, provider was notified. . General: Appears uncomfortable. Pain: Pain currently is 5 out of 10 on a pain scale. 17:42 Reassessment: Patient is alert, oriented x 3, equal unlabored respirations, skin aa5 warm/dry/pink. Patient states feeling better. Pain: Pain currently is 1 out of 10 on a pain scale. Vital Signs: 13:17 BP 127 / 71; Pulse 65; Resp 16; Temp 97.9; Pulse Ox 100% ; Weight 66.68 kg; Height 5 ll1 ft. 0 in. ; 16:00 BP 116 / 72; Pulse 60; Resp 16 S; Pulse Ox 99% on R/A; aa5 16:47 BP 134 / 72; Pulse 60; Resp 19 S; Pulse Ox 100% on R/A; aa5 17:42 BP 119 / 67; Pulse 58; Resp 14 S; Pulse Ox 98% on R/A; aa5 19:35 BP 116 / 65; Pulse 77; Resp 17; Temp 98(O); Pulse Ox 100% on R/A; Pain 9/10; rg5 13:17 Body Mass Index 28.71 (66.68 kg, 152.4 cm) ll1 19:35 Pain Scale: Adult rg5 ED Course: 13:04 Patient arrived in ED. cj3 13:06 Shaka Blanco FNP-C is PHCP. dr5 13:06 Tommy Arroyo DO is Attending Physician. dr5 13:18 Triage completed. ll1 13:19 Arm band placed on. ll1 14:29 Missed attempt(s): 20 gauge Bleeding controlled, band aid applied, catheter tip intact. kb4 14:35 Inserted saline lock: 22 gauge in left antecubital area, using aseptic technique. Blood nh2 collected. Flushed with 10 mL NS. 15:17 CT Abd/Pelvis - IV Contrast Only In Process Unspecified. EDMS 15:18 Mallory Aviles RN is Primary Nurse. aa5 15:45 Patient has correct armband on for positive identification. Bed in low position. Call aa5 light in reach. Side rails up X2. Adult w/ patient. Pulse ox on. NIBP on. 16:13 US Abdomen Limited In Process Unspecified. EDMS 16:41 Abraham Cervantes MD is Hospitalizing Provider. dr5 17:22 Renny Sanon MD is Hospitalizing Provider. dr5 19:05 Report given to CL[place] Friend. aa5 19:55 No provider procedures requiring assistance completed. rg5 19:55 Patient admitted, IV remains in place. intact, No redness/swelling at site. rg5 22:22 Provided Education on: need for admit. rg5 Administered Medications: 15:46 Drug: Ondansetron IVP 4 mg IVP once; over 2 minutes Route: IVP; Site: left antecubital; aa5 15:50 Follow up: Response: No adverse reaction aa5 15:46 Drug: morphine IVP or IV 4 mg IVP once over 4 mins Route: IVP; Infused Over: 4 mins; aa5 Site: left antecubital; 15:50 Follow up: Response: No adverse reaction aa5 15:46 Drug: NS 0.9% IV 1000 ml IV at 1 bolus Per protocol; to be given as a bolus over 60 aa5 minutes Route: IV; Rate: 1 bolus; Site: left antecubital; 16:46 Follow up: IV Status: Completed infusion; IV Intake: 1000ml aa5 16:47 Drug: morphine IVP or IV 4 mg IVP once over 4 mins Route: IVP; Infused Over: 4 mins; aa5 Site: left antecubital; 17:03 Follow up: Response: No adverse reaction aa5 16:47 Drug: Ondansetron IVP 4 mg IVP once; over 2 minutes Route: IVP; Site: left antecubital; aa5 17:03 Follow up: Response: No adverse reaction aa5 17:16 Drug: HYDROmorphone IVP 0.5 mg IVP once Route: IVP; Site: left antecubital; aa5 17:30 Follow up: Response: No adverse reaction; Pain is decreased aa5 Medication: 17:09 VIS not applicable for this client. aa5 Intake: 16:46 IV: 1000ml; Total: 1000ml. aa5 Outcome: 16:41 Decision to Hospitalize by Provider. dr5 17:23 Decision to Hospitalize by Provider. dr5 19:55 Admitted to ER Hold. Please see [facility] for further documentation. rg5 19:55 Condition: stable 19:55 Instructed on the need for admit, 10/14 01:28 Patient left the ED. rg5 Signatures: Dispatcher [employer] EDMS Mallory Aviles RN RN aa5 Abdelrahman Harry RN RN ll1 Phuc Wall RN RN rg5 Raffy Peterson Jr, Dustin, SONIA-C BLOCK GREASER-Cdr5 Glenny Coley kb4 Brittany Tse cj3 Corrections: (The following items were deleted from the chart) 10/13 17:04 15:46 Reassessment: Patient is alert, oriented x 3, equal unlabored respirations, skin aa5 warm/dry/pink. aa5 17:04 15:46 General: Appears uncomfortable, aa5 aa5
--- NOTE | 2024-10-13 16:42 | EDPHYS ---
Physician Documentation [facility] Name: Yovana Gutierrez Age: 39 yrs Sex: Female : 1985 Arrival Date: 10/13/2024 Time: 13:02 Bed 20 Private MD: ED Physician Tommy Arroyo HPI: 10/13 17:11 This 39 yrs old Female presents to ER via Ambulatory with complaints of dr5 Abdominal Pain. 17:11 The patient presents with abdominal pain in the epigastric area. dr5 17:11 Onset: The symptoms/episode began/occurred acutely, today. Patient is a 39-year-old dr5 female with history of A-fib and breast cancer coming in with epigastric abdominal pain that started this morning. Patient reports that she has had a double mastectomy and currently taking tamoxifen. Patient denies nausea or vomiting, fever, diarrhea.. 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 - Infectious Disease History:: Denies. - Social history:: Smoking status: Patient denies any tobacco usage or history of. ROS: 17:11 Constitutional: as per hpi dr5 Exam: 17:11 Constitutional: This is a well developed, well nourished patient who is awake, alert, dr5 and in no acute distress. Head/Face: Normocephalic, atraumatic. Eyes: Pupils equal round and reactive to light, extra-ocular motions intact. Lids and lashes normal. Conjunctiva and sclera are non-icteric and not injected. Cornea within normal limits. Periorbital areas with no swelling, redness, or edema. Neck: Trachea midline, no thyromegaly or masses palpated, and no cervical lymphadenopathy. Supple, full range of motion without nuchal rigidity, or vertebral point tenderness. No Meningismus. Chest/axilla: Normal chest wall appearance and motion. Nontender with no deformity. No lesions are appreciated. Cardiovascular: Regular rate and rhythm with a normal S1 and S2. Normal PMI, no JVD. No pulse deficits. Respiratory: Lungs have equal breath sounds bilaterally, clear to auscultation. No rales, rhonchi or wheezes noted. No increased work of breathing, no retractions or nasal flaring. Back: No spinal tenderness. No costovertebral tenderness. Full range of motion. Skin: Warm, dry with normal turgor. Normal color with no rashes, no lesions, and no evidence of cellulitis. Neuro: Awake and alert, GCS 15, oriented to person, place, time, and situation. Cranial nerves II-XII grossly intact. Motor strength 5/5 in all extremities. Sensory grossly intact. Cerebellar exam normal. Normal gait. 17:11 Abdomen/GI: Inspection: abdomen appears normal, Bowel sounds: normal, Palpation: moderate abdominal tenderness, in the epigastric area, Vital Signs: 13:17 BP 127 / 71; Pulse 65; Resp 16; Temp 97.9; Pulse Ox 100% ; Weight 66.68 kg; Height 5 ll1 ft. 0 in. ; 16:00 BP 116 / 72; Pulse 60; Resp 16 S; Pulse Ox 99% on R/A; aa5 16:47 BP 134 / 72; Pulse 60; Resp 19 S; Pulse Ox 100% on R/A; aa5 17:42 BP 119 / 67; Pulse 58; Resp 14 S; Pulse Ox 98% on R/A; aa5 19:35 BP 116 / 65; Pulse 77; Resp 17; Temp 98(O); Pulse Ox 100% on R/A; Pain 9/10; rg5 13:17 Body Mass Index 28.71 (66.68 kg, 152.4 cm) ll1 19:35 Pain Scale: Adult rg5 MDM: 13:07 Medical Screening Exam initiated dr5 17:11 Differential diagnosis: cholecystitis, Cholelithiasis, diverticulitis, non-specific abd dr5 pain, pancreatitis. Data reviewed: vital signs, nurses notes, lab test result(s), radiologic studies, CT scan. Consideration of Admission/Observation Patient was admitted/placed on observation. Historians other than the Patient: Spouse/Significant Other: . Care significantly affected by the following Social Determinants of Health: Poor access to healthcare and/or lack of insurance, Poor access to transportation, Problems related to employment. Counseling: I had a detailed discussion with the patient and/or guardian regarding the historical points, exam findings, and any diagnostic results supporting the discharge/admit diagnosis, the presence of at least one elevated blood pressure reading (>120/80) during this emergency department visit, lab results, radiology results, the need for further work-up and treatment in the hospital. Medication response: morphine markedly relieved the patient's pain. Symptoms have improved. ED course: Right upper quadrant ultrasound does not show cholelithiasis or cholecystitis. Lipase elevated at 611. Pending lipid panel for triglycerides for concerns of tamoxifen induced pancreatitis.. 18:12 ED course: I personally spoke with Dr. Sanon and gave him CT findings, ultrasound dr5 findings, and request for admission. Orders were not placed into [facility] due to patient's lipid panel not being back for determination of floor bed versus ICU. Your triglycerides were abnormally high would consider insulin drip requiring patient to be ICU.. 10/13 13:21 Order name: CBC with Diff; Complete Time: 15:50 [facility] 10/13 13:21 Order name: CMP; Complete Time: 16:16 10/13 13:21 Order name: Lipase; Complete Time: 16:16 10/13 13:21 Order name: Test, Urine; Complete Time: 15:05 10/13 13:21 Order name: Urinalysis w/ reflexes; Complete Time: 15:05 10/13 13:21 Order name: Troponin High Sensitivity; Complete Time: 16:16 10/13 16:33 Order name: Lipid Profile; Complete Time: 18:11 [facility] 10/13 17:52 Order name: LDL, Direct; Complete Time: 18:11 [facility] 10/13 13:21 Order name: CT Abd/Pelvis - IV Contrast Only; Complete Time: 15:50 10/13 15:51 Order name: US Abdomen Limited; Complete Time: 16:32 dr5 10/13 13:21 Order name: EKG; Complete Time: 13:21 10/13 13:21 Order name: IV Saline Lock; Complete Time: 15:20 10/13 13:21 Order name: Labs collected and sent; Complete Time: 15:20 dr5 10/13 13:21 Order name: EKG - Nurse/Tech; Complete Time: 15:55 dr5 EC:51 Rate is 61 beats/min. Rhythm is regular. QRS [place] is Normal. [place] interval is normal at dr5 126 msec. QRS interval is normal at 64 msec. QT interval is normal at 456 msec. Administered Medications: 15:46 Drug: Ondansetron IVP 4 mg IVP once; over 2 minutes Route: IVP; Site: left antecubital; aa5 15:50 Follow up: Response: No adverse reaction aa5 15:46 Drug: morphine IVP or IV 4 mg IVP once over 4 mins Route: IVP; Infused Over: 4 mins; aa5 Site: left antecubital; 15:50 Follow up: Response: No adverse reaction aa5 15:46 Drug: NS 0.9% IV 1000 ml IV at 1 bolus Per protocol; to be given as a bolus over 60 aa5 minutes Route: IV; Rate: 1 bolus; Site: left antecubital; 16:46 Follow up: IV Status: Completed infusion; IV Intake: 1000ml aa5 16:47 Drug: morphine IVP or IV 4 mg IVP once over 4 mins Route: IVP; Infused Over: 4 mins; aa5 Site: left antecubital; 17:03 Follow up: Response: No adverse reaction aa5 16:47 Drug: Ondansetron IVP 4 mg IVP once; over 2 minutes Route: IVP; Site: left antecubital; aa5 17:03 Follow up: Response: No adverse reaction aa5 17:16 Drug: HYDROmorphone IVP 0.5 mg IVP once Route: IVP; Site: left antecubital; aa5 17:30 Follow up: Response: No adverse reaction; Pain is decreased aa5 Disposition: 17:35 I was immediately available on-site in the Emergency Department for consultation in the ms3 care of the patient. Disposition Summary: 10/13/24 17:23 Hospitalization Ordered Notes: Hospitalization Status: Inpatient Admission(10/13/24 17:23) dr5 Provider: Renny Sanon(10/13/24 17:23) dr5 Location: Telemetry/MedSurg (observation)(10/13/24 17:23) dr5 Condition: Stable(10/13/24 17:23) dr5 Problem: new(10/13/24 17:23) dr5 Symptoms: are unchanged(10/13/24 17:23) dr5 Bed/Room Type: Standard(10/13/24 17:23) dr5 Room Assignment: [facility](10/13/24 23:57) cg Diagnosis - Other chronic pancreatitis(10/13/24 17:23) dr5 Forms: - Medication Reconciliation Form dr5 - SBAR form dr5 - Leadership Thank You Letter dr5 Signatures: Dispatcher [employer] EDMS Mallory Aviles, RN RN aa5 Aura Hair, [place] RN cg Abdelrahman Harry RN RN ll1 Tommy Arroyo, DO ms3 Phuc Wall, [place] RN rg5 Shaka Blanco, HOOP RIVETER-C HOOP RIVETER-Cdr5 Corrections: (The following items were deleted from the chart) 16:33 16:33 LIPID PROFILE+C.LAB.BRZ ordered. EDMS EDMS 17:16 16:41 [address] dr5 dr5 17:16 16:41 Abraham Cervantes dr5 dr5 17:16 16:41 Telemetry/MedSurg (observation) dr5 dr5 17:16 16:41 Stable dr5 dr5 17:16 16:41 new dr5 dr5 17:16 16:41 are unchanged dr5 dr5 17:16 16:41 Standard dr5 dr5 17:16 16:41 dr5 dr5 17:16 16:41 Other chronic pancreatitis dr5 dr5 23:57 17:23 dr5 cg
[2024-10-13] MEDS ORDERED: HYDROMORPHONE HCL 0.5 MG/0.5 ML INJ ONE (17:13)
[2024-10-13 17:47] LABS: HDL Cholesterol 13 mg/dL (40-60)
--- NOTE | 2024-10-13 17:47 | P.HP ---
Patient History Date of Service: 10/13/24 Reason for admission: ABDOMEN PAIN. 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 CT SHOWS PANCREATITIS AND LIPASE IS IN 600S. Allergies No Known Allergies Allergy (Verified 04/12/21 02:57) Home medications list reviewed: Yes Home Medications: Biotin 5,000 mcg PO DAILY 04/12/21 Cholecalciferol (Vitamin D3) [Vitamin D3] 1,000 unit PO DAILY 04/12/21 Cyanocobalamin (Vitamin B-12) [Vitamin B-12] 3,000 mcg PO DAILY 04/12/21 Folic Acid 1 mg PO DAILY 04/12/21 Granisetron HCl [Kytril] 1 mg PO Q12H PRN 04/12/21 Loratadine [Claritin*] 10 mg PO DAILY 04/12/21 Promethazine HCl 25 mg PO Q6H PRN 04/12/21 carvediloL [Carvedilol] 6.25 mg PO BID #60 tablet 04/12/21 - Past Medical/Surgical History Diabetic: No -: L Breast Cancer - Family History Father -: Hypertension, Other (see notes) Notes: HLD Mother -: Hypertension, Other (see notes) Notes: HLD - Social History Alcohol use: No CD- Drugs: No Review of Systems 10-point ROS is otherwise unremarkable General: Weakness, As per HPI Physical Examination - Physical Exam General: Mild distress HEENT: Atraumatic, PERRLA, Mucous membr. moist/pink, EOMI, Sclerae nonicteric Neck: Supple, 2+ carotid pulse no bruit, No LAD, Without JVD or thyroid abnormality Respiratory: Clear to auscultation bilaterally, Normal air movement Cardiovascular: Regular rate/rhythm, Normal S1 S2 Gastrointestinal: Normal bowel sounds, No tenderness Musculoskeletal: No tenderness Integumentary: No rashes Neurological: Normal gait, Normal speech, Normal strength at 5/5 x4 extr, Normal tone, Normal affect Lymphatics: No axilla or inguinal lymphadenopathy - Studies Laboratory Data (last 24 hrs) 10/13/24 10/13/24 14:35 14:30 WBC 12.30 H Hgb 13.2 Hct 39.5 Plt Count 371 Sodium 135 L Potassium 5.6 H BUN 13 Creatinine 0.66 Glucose 93 Total Bilirubin 0.2 AST 66 H ALT 27 Alkaline Phosphatase 78 Lipase 611 H Assessment and Plan - Problems (Diagnosis) (1) Acute pancreatitis Current Visit: Yes Status: Acute Plan: IV DILAUDID IV FLUIDS IV ABX LIKE UNASYN OR ZOSYN. LAB DAILY CHECK TG SONOGRAM NEG. MAY NEED HIDA SCAN. - Advance Directives Does patient have a Living Will: No Does patient have a Durable POA for Healthcare: No
[2024-10-13 17:48] LABS: LDL Cholesterol,Calc NonReport -13
[2024-10-13 18:00] LABS: LDL, Direct 27 mg/dL (100-129)
[2024-10-13] MEDS: NA CHLORIDE 0.9% 1,000 ML IV SCH (19:19)
[2024-10-13] MEDS ORDERED: METOPROLOL TAR 25 MG TAB ONE (19:56)
[2024-10-13] MEDS: METOPROLOL TAR 25 MG TAB PO SCH (19:58)
[2024-10-13] MEDS ORDERED: HYDROMORPHONE HCL 1 MG/ML INJ ONE (20:14)
[2024-10-13] MEDS: HYDROMORPHONE HCL 1 MG/ML INJ IV PRN (20:18)
[2024-10-13] MEDS ORDERED: PROMETHAZINE INJ 25 MG/ML AMP ONE (20:21)
[2024-10-13] MEDS: PROMETHAZINE INJ 25 MG/ML AMP IV PRN (20:23)
[2024-10-13 22:31] VITALS: BMI 28.7
[2024-10-14] MEDS ORDERED: HYDROMORPHONE HCL 1 MG/ML INJ ONE (00:35)
[2024-10-14 01:36] VITALS: O2SAT 100
[2024-10-14] MEDS: PIPER TAZO 3.375 GM in NA CHLORIDE 0.9% 100 ML IV SCH (02:09)
[2024-10-14] MEDS: TRAMADOL HCL 50 MG TAB PO PRN (07:57)
[2024-10-14] MEDS ORDERED: METOPROLOL TAR 25 MG TAB PO SCH (09:00)
[2024-10-14 10:08] LABS: Absolute Basophils 0.1 K/uL (0-0.5); Absolute Lymphocytes (CBC) 1.9 K/uL (0.7-4.9); Absolute Monocytes 0.5 K/uL (0.1-1.3); Absolute Neutrophil 9.9 K/uL (1.8-8.0); Eosinophils % 0.1 % (0-4.4); Hematocrit 37.2 % (36.0-45.0); Hemoglobin 13.1 g/dL (12.0-15.0); Lymphocytes % 15.4 % (15.3-44.8); MCH 30.2 pg (27.0-35.0); MCHC 35.3 g/dL (32.0-36.0); MCV 85.4 fL (80-100); MPV 7.5 fL (7.6-11.3); Monocytes % 4.1 % (3.3-12.3); Neutrophils % 79.4 % (41.7-73.7); Nucleated Red Blood Cells % 0.1 % (0-0); Platelets 254 thou/uL (152-406); RBC Red Blood Cell Count 4.36 M/uL (3.86-4.86); Red Cell Distribution Width 13.5 % (12.1-15.2)
[2024-10-14 12:21] LABS: Anion Gap 9.9 mEq/L (5.0-15.0)
[2024-10-14 12:25] LABS: Potassium 3.9 mEq/L (3.5-5.1)
[2024-10-14] MEDS ORDERED: SODIUM CHLORIDE 0.9% 10ML INJ IV PRN (12:57)
--- NOTE | 2024-10-14 13:08 | P.PN ---
Subjective Date of Service: 10/14/24 Chief Complaint: ABDOMEN PAIN. Subjective: Improving PAIN STILL CONTINUES. 02/05. SHE WILL BE NPO CONSULT DR. BERGER. Review of Systems 10-point ROS is otherwise unremarkable Physical Examination - Vital Signs Temperature: 100.1 F Blood Pressure: 91/53 Pulse: 89 Respirations: 20 Pulse Ox (%): 94 - Physical Exam General: Moderate distress HEENT: Atraumatic, PERRLA, EOMI Neck: Supple, JVD not distended Respiratory: Clear to auscultation bilaterally, Normal air movement Cardiovascular: Regular rate/rhythm, Normal S1 S2 Gastrointestinal: Tenderness (EPIG) Musculoskeletal: No tenderness Integumentary: No rashes Neurological: Normal speech, Normal tone, Normal affect Lymphatics: No axilla or inguinal lymphadenopathy - Studies Laboratory Data (last 24 hrs) 10/13/24 10/13/24 10/13/24 15:10 14:35 14:30 WBC 12.30 H Hgb 13.2 Hct 39.5 Plt Count 371 Sodium 135 L Potassium 5.6 H BUN 13 Creatinine 0.66 Glucose 93 Total Bilirubin 0.2 AST 66 H ALT 27 Alkaline Phosphatase 78 Triglycerides 324 H Cholesterol 65 LDL Cholesterol Direct 27 L HDL Cholesterol 13 L Cholesterol/HDL Ratio 5.00 Lipase 611 H Medications List Reviewed: Yes Assessment And Plan - Current Problems (Diagnosis) (1) Acute pancreatitis Current Visit: Yes Status: Acute Plan: IV DILAUDID IV FLUIDS IV ABX LIKE UNASYN OR ZOSYN. LAB DAILY CHECK TG SONOGRAM NEG. MAY NEED HIDA SCAN. CONSULT DR. Porter
[2024-10-14] MEDS: NA CHLORIDE 0.9% 1,000 ML IV SCH (13:27)
[2024-10-14] MEDS ORDERED: PIPER TAZO 3.375 GM in NA CHLORIDE 0.9% 100 ML IV SCH (19:20)
--- NOTE | 2024-10-14 20:10 | RAD REPORT ---
EXAMINATION: MR CHOLANGIOGRAM CLINICAL INDICATION: Female, 39 years old. Pancreatitis TECHNIQUE: Multiplanar, multisequence MR imaging of the abdomen without intravenous contrast, and wit h specific attention to the biliary system. Unless otherwise specified, incidental findings do not require dedicated imaging follow-up. 3D MIP reconstruction performed. COMPARISON: 10/13/2024 FINDINGS: GALLBLADDER: No stones, wall thickening, or pericholecystic fluid. BILE DUCTS: No biliary ductal dilatation. LIVER: Normal in size, contour, and signal without evidence of fatty infiltration or iron deposition. No focal lesion. PANCREAS: Moderate peripancreatic inflammation and fluid compatible with pancreatitis. LYMPH NODES: No lymphadenopathy. ADDITIONAL FINDINGS: Mild free fluid in the upper abdomen. IMPRESSION: Moderate acute pancreatitis. No localized fluid collections. No pathologic biliary tree abnormality.
[2024-10-15 05:36] LABS: Absolute Lymphocytes (CBC) 2.2 K/uL (0.7-4.9); Absolute Monocytes 0.5 K/uL (0.1-1.3); Absolute Neutrophil 7.8 K/uL (1.8-8.0); Basophils % 0.3 % (0-1.3); Eosinophils % 0.3 % (0-4.4); Hematocrit 33.2 % (36.0-45.0); Hemoglobin 11.6 g/dL (12.0-15.0); MCH 30.5 pg (27.0-35.0); MCHC 34.9 g/dL (32.0-36.0); MCV 87.5 fL (80-100); MPV 7.5 fL (7.6-11.3); Monocytes % 4.3 % (3.3-12.3); Neutrophils % 74.1 % (41.7-73.7); Nucleated Red Blood Cells % 0.1 % (0-0); Platelets 220 thou/uL (152-406); RBC Red Blood Cell Count 3.79 M/uL (3.86-4.86); Red Cell Distribution Width 14.1 % (12.1-15.2)
[2024-10-15 05:49] LABS: Albumin 2.1 g/dL (3.4-5.0); Albumin/Globulin Ratio 0.6 (1.1-1.8); Alkaline Phosphatase 48 U/L (45-117); Anion Gap 8.4 mEq/L (5.0-15.0); BUN Blood Urea Nitrogen 9 mg/dL (7-18); Bicarbonate 25 mEq/L (21-32); Bilirubin Direct 0.2 mg/dL (0-0.2); Bilirubin Indirect, Calculated 0.6 mg/dL (0.2-0.8); Bilirubin Total 0.8 mg/dL (0.2-1.0); Globulin 3.4 g/dL (2.3-3.5); Glomerular Filtration Rate 108 ml/min (=/>90); Glucose Level 85 mg/dL (74-106); Potassium 3.4 mEq/L (3.5-5.1); Protein, Total 5.5 g/dL (6.4-8.2); Sodium Level 140 mEq/L (136-145)
[2024-10-15 05:50] LABS: ALT/SGPT < 14 U/L (13-56); AST/SGOT < 10 U/L (15-37)
[2024-10-15 08:50] VITALS: TEMP 98.5
[2024-10-15] MEDS: PANTOPRAZOLE 40 MG INJ IVP SCH (08:53)
--- NOTE | 2024-10-15 12:35 | EKG ---
Test Date: 2024-10-13 Test Time: 15:51:54 Control Technician: ORTEGA MEASUREMENT RESULTS: Intervals: Rate: 61 MI: 126 QRSD: 64 QT: 456 QTc: 459 [place]: P: 35 MI: 126 QRS: 52 T: 54 INTERPRETIVE STATEMENTS: Normal sinus rhythm Low voltage QRS Borderline ECG Compared to ECG 04/11/2021 23:07:42 Low QRS voltage now present Electronically Signed On 10-15-24 12:26:58 CDT by Larry Lugo
[2024-10-15 12:49] VITALS: BP 107/56
--- NOTE | 2024-10-15 13:02 | P.DS ---
Admission Date: 10/13/24 Discharge Date: 10/15/24 Disposition: ROUTINE DISCHARGE Discharge Condition: FAIR Reason for Admission: ABDOMEN PAIN. 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 CT SHOWS PANCREATITIS AND LIPASE IS IN 600S. Hospital Course: KAROLYN IS LOT BETTER, ABLE TO TOLERATE FOOD. SHE KNOWS TO AVOID FATTY FOODS NOW ON. FU IN OFFICE IN ONE WEEK. Vital Signs/Physical Exam: Temp Pulse Resp BP Pulse Ox 98.5 F 95 H 25 H 107/56 L 93 10/15/24 12:00 10/15/24 12:00 10/15/24 12:00 10/15/24 12:00 10/15/24 12:00 Laboratory Data at Discharge: WBC 10.50 thou/uL (4.3-10.9) 10/15/24 05:04 Hgb 11.6 g/dL (12.0-15.0) L D 10/15/24 05:04 Hct 33.2 % (36.0-45.0) L 10/15/24 05:04 Plt Count 220 thou/uL (152-406) 10/15/24 05:04 Sodium 140 mEq/L (136-145) 10/15/24 05:04 Potassium 3.4 mEq/L (3.5-5.1) L 10/15/24 05:04 BUN 9 mg/dL (7-18) 10/15/24 05:04 Creatinine 0.72 mg/dL (0.55-1.02) 10/15/24 05:04 Glucose 85 mg/dL (74-106) 10/15/24 05:04 Total Bilirubin 0.8 mg/dL (0.2-1.0) 10/15/24 05:04 AST < 10 U/L (15-37) L 10/15/24 05:04 ALT < 14 U/L (13-56) 10/15/24 05:04 Alkaline Phosphatase 48 U/L (45-117) 10/15/24 05:04 Triglycerides 324 mg/dL (<150) H 10/13/24 15:10 Cholesterol 65 mg/dL (<200) 10/13/24 15:10 LDL Cholesterol Direct 27 mg/dL (100-129) L 10/13/24 15:10 HDL Cholesterol 13 mg/dL (40-60) L 10/13/24 15:10 Cholesterol/HDL Ratio 5.00 10/13/24 15:10 Lipase Cancelled 10/14/24 13:00 Home Medications: Biotin 10,000 mcg PO DAILY 04/12/21 Cholecalciferol (Vitamin D3) [Vitamin D3] 4,000 unit PO DAILY 04/12/21 Metoprolol Tartrate [Lopressor] 25 mg PO BID 10/14/24 Tamoxifen Citrate 20 mg PO DAILY 10/14/24 Followup: Renny Sanon MD [Primary Care Provider] -
== END 2024-10-15 14:56 | disposition home or self-care (01) | DRG 440 ==
LOC: ER 13:02 → ERHOLD 19:20 → 2ND 10-14 00:48
PROVIDERS: ADMIT Internal Medicine; ATTEND Internal Medicine
DX: K85.90 Acute pancreatitis without necrosis or infection, unspecified (principal); I48.91 Unspecified atrial fibrillation; C50.919 Malignant neoplasm of unspecified site of unspecified female breast; Z59.71 Insufficient health insurance coverage; Z90.13 Acquired absence of bilateral breasts and nipples; Z79.02 Long term (current) use of antithrombotics/antiplatelets; Z79.899 Other long term (current) drug therapy
CPT/HCPCS: 36415; 74177; 74181; 76705; 80048; 80053; 80061; 80076; 81001; 81025; 83690; 84484; 85025; 93005; 96361; 96374; 96375; 99285; J1171; J2405; J2470; J2543; J2550; J7030; Q9967